=== PATIENT | female | born 1960 | race Caucasian/White ===

== ENCOUNTER 2018-10-02 10:55 | Outpatient (CLI) | payer MEDICAID, SELFPAY ==
[2018-10-02 15:18] LABS: ALT 34 U/L (12-78); AST 22 U/L (15-37); Albumin 3.6 g/dL (3.4-5.0); Alkaline Phosphatase 84 U/L (46-116); Anion Gap 8.5 mmol/L (3-11); BUN 21 mg/dL (7-18); Bilirubin, Total 0.5 mg/dL (0.2-1.0); CO2 27.5 mmol/L (21.0-32.0); CREATININE 0.75 mg/dL (0.55-1.02); Calcium 9.4 mg/dL (8.5-10.1); Chloride 104 mmol/L (98-107); Cholesterol 196 mg/dL (50-200); Glucose 104 mg/dL (70-100); HDL Cholesterol 61 mg/dL (40-60); LDL CHOLESTEROL 123 mg/dL (<100); Potassium 4.4 mmol/L (3.5-5.1); Sodium 140 mmol/L (136-145); Triglyceride 58 mg/dL (30-150)
== END 2018-10-02 11:15 ==
PROVIDERS: PCP Family Medicine; Visit Provider Family Medicine
DX: Z13.220 Encounter for screening for lipoid disorders (principal); Z13.228 Encounter for screening for other metabolic disorders; Z00.00 Encounter for general adult medical examination without abnormal findings
CPT/HCPCS: 36415; 80053; 80061; 83721

== ENCOUNTER 2019-04-02 11:37 | Outpatient (CLI) | payer MEDICAID, SELFPAY ==
--- NOTE | 2019-04-02 14:00 | DI.RAD_ITS ---
SYMPTOMS/DIAGNOSIS: LOW BACK PAIN, M25.551; LEFT HIP PAIN, M25.552 LUMBAR SPINE: AP, lateral and bilateral oblique views of the lumbar spine. Comparison is 08/22/13. There are five lumbar-type vertebral bodies. There is normal alignment. No spondylolysis or spondylolisthesis. There is minimal narrowing of the disc spaces at T12-L1 and L1-L2. Small endplate osteophytes are seen at L1-L2, L3-L4 and L4-L5. There do appear to be degenerative changes of the facets at L5-S1. No acute fractures or subluxations are seen. There are surgical clips in the right upper quadrant of the abdomen, likely reflecting prior cholecystectomy. An intrauterine device is seen in the pelvis. IMPRESSION: Mild degenerative changes of the lumbar spine. LEFT HIP AND PELVIS: Three views. The bones are intact and normally mineralized. The sacroiliac joints and symphysis pubis are intact. The hip joints are well maintained. Incidental note is made of an intrauterine device. The soft tissues are unremarkable. IMPRESSION: Negative examination.
== END 2019-04-02 11:57 ==
PROVIDERS: PCP Family Medicine; Visit Provider Family Medicine
DX: M54.5 Low back pain (principal); M25.552 Pain in left hip; M47.816 Spondylosis without myelopathy or radiculopathy, lumbar region; Z97.5 Presence of (intrauterine) contraceptive device
CPT/HCPCS: 72110; 73502

== ENCOUNTER 2019-10-03 10:46 | Outpatient (CLI) | payer MEDICAID, SELFPAY ==
[2019-10-03 12:49] LABS: Abs Immature Grans 0.02 k/cumm (0.0-0.09); Absolute Basophil Count 0.02 k/cumm (0.0-0.2); Absolute Eosinophil Count 0.09 k/cumm (0.0-0.7); Absolute Lymphocyte Count 1.63 k/cumm (1.2-3.4); Absolute Monocyte Count 0.33 k/cumm (0.11-0.7); Absolute Neutrophil Count 3.19 k/cumm (1.2-6.7); Basophils % 0.4; Eosinophils % 1.7; HCT 41.6 % (36.0-46.0); HGB 13.4 g/dL (12.0-15.5); Immature Grans % 0.4; Lymphocytes % 30.9; Mean Corp. HGB Concentration 32.2 g/dL (32.0-36.0); Mean Corpuscular Hemoglobin 29.2 pg (27.0-33.0); Mean Corpuscular Volume 90.6 fL (80-95); Mean Platelet Volume 10.4 fL (8.0-11.0); Monocytes % 6.3; Neutrophils % 60.3; Platelet Count 247 x1000/uL (130-400); RBC 4.59 m/cumm (4.00-5.20); RBC Distribution Width 14.5 % (11.7-14.6); White Blood Cell Count 5.28 k/cumm (4.4-10.8)
[2019-10-03 13:04] LABS: ALT 38 U/L (14-59); AST 21 U/L (15-37); Albumin 3.6 g/dL (3.4-5.0); Alkaline Phosphatase 84 U/L (46-116); Anion Gap 7.1 mmol/L (3-11); BUN 20 mg/dL (7-18); Bilirubin, Total 0.5 mg/dL (0.2-1.0); CO2 28.9 mmol/L (21.0-32.0); CREATININE 0.75 mg/dL (0.55-1.02); Calcium 9.4 mg/dL (8.5-10.1); Chloride 105 mmol/L (98-107); Glucose 107 mg/dL (70-100); Lipase 79 U/L (73-393); Potassium 5.1 mmol/L (3.5-5.1); Sodium 141 mmol/L (136-145); Total Protein 7.1 g/dL (6.4-8.2)
[2019-10-03 14:13] LABS: Hemoglobin A1C 6.7 % (4.5-6.2)
== END 2019-10-03 11:06 ==
PROVIDERS: PCP Family Medicine; Visit Provider Family Medicine
DX: R10.9 Unspecified abdominal pain (principal); Z00.00 Encounter for general adult medical examination without abnormal findings
CPT/HCPCS: 36415; 80053; 83690; 83036; 85025

== ENCOUNTER 2019-10-10 01:18 | Outpatient (CLI) | payer MEDICAID, SELFPAY ==
--- NOTE | 2019-10-10 07:10 | DI.RAD_ITS ---
EXAM: XR THORACIC SPINE COMPLETE INDICATION: thoracic BACK pain,M54.6. COMPARISON: No exams were available for comparison TECHNIQUE: 2D digital imaging was performed. FINDINGS: The vertebral bodies are well maintained in height. Endplate osteophytes are seen, greatest in the m id to lower thoracic region. There is no scoliosis. The visualized portions of the lungs are clear. IMPRESSION: Mild degenerative disc changes.
--- NOTE | 2019-10-10 08:15 | DI.US_ITS ---
EXAM: US ABDOMEN CLINICAL HISTORY: epigastric pain, radiating to back,R10.13 TECHNIQUE: Ultrasound performed using standard protocol. COMPARISON: No exams were available for comparison FINDINGS: The liver is normal in size and echogenicity. No focal liver lesions or biliary dilatation is seen. The patient is status post cholecystectomy. Pancreas is shadowed by bowel gas. Spleen, kidneys an d aorta are unremarkable. There is no ascites. Beneath the right costal margin, there is a smoothly marginated lesion in the subcutaneous fat measuring 5 x 2 x 7.2 cm, consistent with a lipoma. Echot exture is homogeneous and there is no blood flow. IMPRESSION: Status post cholecystectomy. 7 x 5 x 2 cm right upper quadrant lipoma.
== END 2019-10-10 01:38 ==
PROVIDERS: PCP Family Medicine; Visit Provider Family Medicine
DX: R10.13 Epigastric pain (principal); D17.5 Benign lipomatous neoplasm of intra-abdominal organs; Z90.49 Acquired absence of other specified parts of digestive tract; M54.6 Pain in thoracic spine; M51.34 Other intervertebral disc degeneration, thoracic region
CPT/HCPCS: 72072; 76700

== ENCOUNTER 2019-11-04 00:05 | Outpatient (CLI) | payer MEDICAID, SELFPAY ==
--- NOTE | 2019-11-04 13:10 | DI.MAMMO_ITS ---
EXAM: MAMMO SCREENING CLINICAL HISTORY: screening Z12.39. TECHNIQUE: Full field digital CC and MLO mammographic images were obtained with 3D tomosynthesis and utilizing computer aided detection (CAD). COMPARISON: 2008 through 2016. FINDINGS: Breast Density - Category A - Almost entirely fatty. The patient is now status post bilateral breast reduction since the previous exam. Right breast: Masses/Architectural Distortion: None seen. Microcalcifications: No suspicious pleomorphic-type are seen. Skin Thickening/Nipple Retraction: None. Left breast: There is a new area of irregular increased density seen in the medial central left breas t. It measures roughly 3.9 x 3.3 x 2.5 cm. There are scattered associated pleomorphic calcification s within the mass. There is a question of an additional area of architectural distortion measuring 1 2 x 6 millimeters seen lateral and posterior breast, seen only on the CC view. IMPRESSION: Right breast: BI-RADS category 1, negative. Yearly screening mammography is recommended. Left breast: New large mass with associated calcifications and a question of an additional smaller ma ss. Further evaluation with spot compression views and ultrasound is recommended. Category BI-RADS category 0. Breast Density - Category A - Almost entirely fatty Patient will receive a letter notifying them of these results.
== END 2019-11-04 00:25 ==
PROVIDERS: PCP Family Medicine; Visit Provider Family Medicine
DX: Z12.31 Encounter for screening mammogram for malignant neoplasm of breast (principal); R92.8 Other abnormal and inconclusive findings on diagnostic imaging of breast; Z98.890 Other specified postprocedural states
CPT/HCPCS: 77063; 77067

== ENCOUNTER 2019-11-06 01:07 | Outpatient (CLI) | payer MEDICAID, SELFPAY ==
--- NOTE | 2019-11-06 10:11 | DI.MAMMO_ITS ---
EXAM: MG MAMMO DIAGNOSTIC UNI AND LEFT BREAST ULTRASOUND CLINICAL HISTORY: MEDIAL INCREASED DENSITY POSTEROLATERAL AREA OF ARCHITECTURAL DISTORTION TECHNIQUE: Craniocaudal and mediolateral oblique Full Field Digital Mammography views with Computer Aided Diagnosis followed by Breast Tomosynthesis and bilateral breast ultrasound. COMPARISON: US BREAST LT LIMITED from 11/06/2019 FINDINGS: Additional views of the left breast: Breast Density: Breast Density - Category A - Almost entirely fatty Asymmetry: There is persistent asymmetric breast tissue in the medial central left breast. There are calcifications associated with the mass which appear pleomorphic. The 2nd smaller asymmetric densit y in the upper outer quadrant of the left breast persists. Skin Thickening/Nipple Retraction: None. Breast Ultrasound: Left breast ultrasound: Echotexture: There is a 1.2 x 1.4 x 2.8 centimeter, irregular, hypoechoic area at the 8 o'clock posit ion of the left breast 3 centimeters from the nipple. This corresponds to the mammographic abnormali ty. There is internal blood flow noted. There is posterior acoustic shadowing. The upper outer jennyfer drant of the left breast was evaluated. No cystic or solid mass is seen sonographically. IMPRESSION: 1. Mammographically and sonographically suspicious mass at the 8 o'clock position of the left breast. 2. The 2nd lesion in the upper outer quadrant of the left breast is seen only mammographically. BI-RADS Cat 4 - Suspicious Abnormality: Biopsy should be considered Breast Density - Category A - Almost entirely fatty The findings were discussed with the patient's primary care team on the date of the examination. Findings were discussed with the patient on the date of the examination. A negative radiographic report should not delay biopsy if a dominant or clinically suspicious mass is present. Up to ten percent of cancers are not identified on mammography. A negative report may reinforce clinical impression. Adenosis and dense breasts may obscure an underlying neoplasm. False positive reports average 6 to 10%. Patient will receive a letter notifying them of these results.
== END 2019-11-06 01:27 ==
PROVIDERS: PCP Family Medicine; Visit Provider Family Medicine
DX: Z12.31 Encounter for screening mammogram for malignant neoplasm of breast (principal); R92.8 Other abnormal and inconclusive findings on diagnostic imaging of breast; N63.24 Unspecified lump in the left breast, lower inner quadrant
CPT/HCPCS: 76642; 77061; 77065; G0279

== ENCOUNTER 2020-10-14 04:36 | Outpatient (CLI) | payer MEDICAID, SELFPAY ==
[2020-10-14 13:36] LABS: Hemoglobin A1C 6.4 % (<5.7)
[2020-10-14 13:53] LABS: ALT 41 U/L (14-59); AST 27 U/L (15-37); Albumin 3.7 g/dL (3.4-5.0); Alkaline Phosphatase 82 U/L (46-116); Anion Gap 12.3 mmol/L (3-11); BUN 14 mg/dL (7-18); Bilirubin, Total 0.5 mg/dL (0.2-1.0); CO2 26.7 mmol/L (21.0-32.0); COMMENT (LAB VIEW ONLY) 121.24 mg/dL; CREATININE 0.86 mg/dL (0.55-1.02); Calcium 9.1 mg/dL (8.5-10.1); Calculated LDL 103 mg/dL (<100); Chloride 104 mmol/L (98-107); Cholesterol 172 mg/dL (<200); Glucose 110 mg/dL (74-106); HDL Cholesterol 59 mg/dL (40-60); Microalb ug/mg Crea 8.2 ug/mg Cr; Sodium 143 mmol/L (136-145); Total Protein 7.2 g/dL (6.4-8.2); Triglyceride 51 mg/dL (<150)
== END 2020-10-14 04:56 ==
PROVIDERS: PCP Family Medicine; Visit Provider Family Medicine
DX: E11.9 Type 2 diabetes mellitus without complications (principal)
CPT/HCPCS: 36415; 80053; 80061; 82043; 82570; 83036

== ENCOUNTER 2020-10-20 15:44 | Outpatient (REF) | payer MEDICAID, SELFPAY ==
--- NOTE | 2020-10-20 09:00 | PAPFT_PTH ---
PATIENT: Daisy Matta LOC: [facility] U#:[id number] AGE/SX: 59/F ROOM: RE10/20/[address]: Itzel Nelson MD, DC : 1960 BED: DIS: 10/20/2020 SPEC #: [id number] RECD: 10/20/20 18:09 STATUS: ALESHIA REQ #: [id number] ABDULLAHI: 10/20/20 09:[address]: Itzel Nelson DEPT: [facility] Cytology RECD BY: Talita Garcia Tissues: 1 - CX/ENDOCX FOR PAP SMEARS Procedures: PAP THIN PREP/UVM Screening HPV DNA PROBE Comments: [id number]
== END 2020-10-20 16:04 ==
LOC: LBN 15:44
PROVIDERS: PCP Family Medicine; Visit Provider Family Medicine
DX: Z12.4 Encounter for screening for malignant neoplasm of cervix (principal); Z11.51 Encounter for screening for human papillomavirus (HPV); Z97.5 Presence of (intrauterine) contraceptive device
CPT/HCPCS: 88142; 87624

== ENCOUNTER 2020-11-24 01:06 | Outpatient (CLI) | payer MEDICAID, SELFPAY ==
--- NOTE | 2020-11-24 07:50 | DI.MAMMO_ITS ---
EXAM: MG MAMMO SCREENING CLINICAL HISTORY: breast cancer screening TECHNIQUE: Mammograms were interpreted according to the usual protocol including computer analysis w ith CAD system, tomosynthesis and C-view imaging. COMPARISON: FINDINGS: The breasts are of moderate density. There is an area of asymmetric density in the left breast proje cted in the central medial portion of the breast which has been present on multiple prior examination s. This area now contains multiple irregular microcalcifications, some linearly oriented, which were not present on prior examinations including October 2019. The findings are suspicious for malignan cy. I would note that there is also a grouping of microcalcifications projected about 2 cm superior to the main group of microcalcifications which may be intraductal. Additional evaluation with magnif ication spot compression views and breast ultrasound recommended to evaluate the possibility of malig pj. No additional suspicious mass or clumped microcalcification identified in either breast. IMPRESSION: Suspicious microcalcifications of the left breast as described above, magnification spot compression views and breast ultrasound recommended for further evaluation. BI-RADS Cat 0 - Assessment Incomplete : Need additional imaging evaluation BI-RADS Category 0 - Assessment Incomplete: Need additional imaging evaluation BI-RADS Cat 0 - Assessment Incomplete: Need additional imaging evaluation Breast Density - Category B - Scattered areas of fibroglandular density
== END 2020-11-24 01:26 ==
PROVIDERS: PCP Family Medicine; Visit Provider Family Medicine
DX: Z12.31 Encounter for screening mammogram for malignant neoplasm of breast (principal); R92.0 Mammographic microcalcification found on diagnostic imaging of breast
CPT/HCPCS: 77063; 77067

== ENCOUNTER 2020-12-03 00:51 | Outpatient (CLI) | payer MEDICAID, SELFPAY ==
--- NOTE | 2020-12-03 | DI.MAMMO_ITS ---
EXAM: MG MAMMO SCREEN CALL BACK UNI CLINICAL HISTORY: F/U MAMMO, ,LT ASYMMETRIC DENSITY WITH IRREGULAR MICROCALCIFICATIONS,?. TECHNIQUE: Additional spot compression views of the left breast were performed. COMPARISON: Prior mammograms dating back to 2011, the most recent being 11/24/2020. Prior [facility] consultation was reviewed. This patient has had prior reduction surgery. She denies feeling a lump. FINDINGS: Additional mass views reveal the microcalcifications to be most probably benign and related to fat ne crosis evolution. The additional new semi lunar microcalcifications just above and lateral have calvin gn appearance and are probably also related to fat necrosis. They correspond to findings in a benign -appearing nodule seen on today's ultrasound examination. Please see that separate report IMPRESSION: Benign-appearing left breast findings. Probably all related to fat necrosis in this patient who has had prior reduction surgery. Appropriate follow-up, as discussed by myself with the patient today, is repeat left breast imaging t o include repeat left breast mammogram with spot views as well as left breast ultrasound in 6 months. BI-RADS Category 3 - 3 month - Probably Benign Finding: Recommend follow-up mammography in 3 months Breast Density - Category B - Scattered areas of fibroglandular density Breast density Category C or D implies that the patient has dense breast tissue. Dense breast tissue can make it harder to find cancer on a mammogram. Dense breast tissue is also associated with an incr eased risk of breast cancer. This information about the result of the mammogram report was provided to the patient to raise their awareness. Use this report when you speak with the patient about their risks for breast cancer, which includes their family history. At that time, you may recommend additional screening tests (Ultrasoun d or MRI) as these tests may add significant information. A negative radiographic report should not delay biopsy if a dominant or clinically suspicious mass is present. Up to ten percent of cancers are not identified on mammography. A negative report may reinforce clinical impression. Adenosis and dense breasts may obscure an underlying neoplasm. False positive reports average 6 to 10%. Patient will receive a letter notifying them of these results.
--- NOTE | 2020-12-03 | DI.US_ITS ---
EXAM: US BREAST LT LIMITED CLINICAL HISTORY: F/U MAMMO, ASYMMETRIC DENSITY WITH IRREGULAR MICROCALCIFICATIONS. TECHNIQUE: Limited ultrasound of the left breast was performed. COMPARISON: Prior mammograms were reviewed. Prior ultrasound 11/06/2019 was also reviewed. Recent c onsultation from [facility] was reviewed FINDINGS: At the 8-830 o'clock position there is again noted the previously described shadowing mass correspond ing to the finding on the mammogram. This remains unchanged size. Appearance is most probably fat n ecrosis. In addition, there is a adjacent finding on ultrasound which corresponds to the adjacent new finding on the mammogram. This is a well-defined small wider than taller nodule with some tiny microcalcific ations in its peripheral aspect (as also seen on the mammogram) and somewhat hyperechoic. This measu res approximately 5 x 4 millimeters. Has appearance of a probable additional fat necrosis. IMPRESSION: Two findings as above which correspond to the mammographic findings. I feel that both are consistent with fat necrosis given the mammographic and ultrasound appearance is and a past history of breast r eduction surgery. Appropriate follow-up, as discussed by myself with the patient today, is repeat left breast imaging i n 6 months, this to include repeat mammography and ultrasound. BI-RADS Category 3 - 6 month - Probably Benign Finding: Recommend follow-up mammography in 6 months Breast Density - Category B - Scattered areas of fibroglandular density Breast density Category C or D implies that the patient has dense breast tissue. Dense breast tissue can make it harder to find cancer on a mammogram. Dense breast tissue is also associated with an incr eased risk of breast cancer. This information about the result of the mammogram report was provided to the patient to raise their awareness. Use this report when you speak with the patient about their risks for breast cancer, which includes their family history. At that time, you may recommend additional screening tests (Ultrasoun d or MRI) as these tests may add significant information. A negative radiographic report should not delay biopsy if a dominant or clinically suspicious mass is present. Up to ten percent of cancers are not identified on mammography. A negative report may reinforce clinical impression. Adenosis and dense breasts may obscure an underlying neoplasm. False positive reports average 6 to 10%. Patient will receive a letter notifying them of these results.
== END 2020-12-03 01:11 ==
PROVIDERS: PCP Family Medicine; Visit Provider Family Medicine
DX: R92.8 Other abnormal and inconclusive findings on diagnostic imaging of breast (principal); R92.0 Mammographic microcalcification found on diagnostic imaging of breast
CPT/HCPCS: 76642; 77063; 77067

== ENCOUNTER 2021-02-09 02:40 | Outpatient (CLI) | payer MEDICAID, SELFPAY ==
[2021-02-09 14:03] LABS: Hemoglobin A1C 6.5 % (<5.7)
== END 2021-02-09 02:41 | disposition home or self-care (01) ==
LOC: LOS 02:40
PROVIDERS: PCP Family Medicine; Visit Provider Family Medicine
DX: E11.9 Type 2 diabetes mellitus without complications (principal)
CPT/HCPCS: 36415; 83036

== ENCOUNTER 2021-05-12 02:22 | Outpatient (CLI) | payer MEDICAID, SELFPAY ==
[2021-05-12 11:59] LABS: Source Nasal/Nares
[2021-05-12 14:39] LABS: COVID-19 PCR Negative (Negative)
== END 2021-05-12 02:23 | disposition home or self-care (01) ==
PROVIDERS: PCP Family Medicine; Visit Provider Surgery
DX: Z20.822 Contact with and (suspected) exposure to COVID-19 (principal); Z01.818 Encounter for other preprocedural examination
CPT/HCPCS: 87635

== ENCOUNTER 2021-05-14 10:00 | Day surgery (SDC) | payer MEDICAID, SELFPAY ==
[2021-05-14 10:27] VITALS: BP 128/78; PULSE 67; RESP 16; TEMP 36.6; O2SAT 97
[2021-05-14] MEDS: Lactated Ringers 1,000 ML 80 ML IV (10:45)
--- NOTE | 2021-05-14 11:12 | ANES.PREOP_ITS ---
General Info Date of Service Date Performed: 05/14/21 Height: 5 ft 2 in Weight: 91 kg Body Mass Index (BMI): 36.6 Surgical Procedure: Operation Date: 05/14/21 10:20 Proposed Procedures Side Surgeon p Colonoscopy/Gastroscopy Milagro Harding, DO Meds Allergies and Home Medications Allergies Allergy/AdvReac Type Severity Reaction Status Date / Time shellfish derived Allergy Unknown Unverified 05/14/21 10:25 Home Medication Medication Instructions Recorded acetaminophen [Tylenol Extra 1,000 mg PO PRN tab-cap 10/17/17 Strength] ibuprofen 200 mg PO PRN tab-cap 02/20/18 triamcinolone acetonide 0.5 % 1 applic TP BID #454 gm 01/22/19 topical cream furosemide 20 mg tablet 20 mg PO DAILY PRN #60 tab 04/02/19 losartan 25 mg tablet 25 mg PO DAILY #90 tab 07/23/20 meclizine 12.5 mg tablet 12.5 mg PO DAILY PRN #30 tab 10/20/20 omeprazole 20 mg capsule,delayed 20 mg PO DAILY #90 tab-cap 01/07/21 release bisacodyl 5 mg tablet,delayed 5 mg PO ONCE #4 tab 04/29/21 release polyethylene glycol 3350 17 238 g PO ONCE #238 g 04/29/21 gram/dose oral powder Current Visit Medications: Current Medications Generic Name Dose Route Start Last Admin Trade Name Freq PRN Reason Stop Dose Admin Hyoscyamine Sulfate 0.125 mg 05/14/21 09:04 Hyoscyamine 0.125 Mg Sl/Oral/Chew SL DIRECTED PRN Ringer's Solution 1,000 mls @ 80 mls/hr 05/14/21 06:00 05/14/21 10:45 IV 06/12/21 23:59 80 mls/hr INFUSION EDWIN Administration IV Miscellaneous Supplies 1 each 05/14/21 06:00 Iv Access IV 06/12/21 23:59 DIRECTED EDWIN Sodium Chloride 0 ml 05/14/21 06:00 Normal Saline Flush 10 Ml Syr IV 06/12/21 23:59 PRN PRN Sodium Chloride 0 ml 05/14/21 06:00 Normal Saline 10 Ml Vial IJ 06/12/21 23:59 DIRECTED PRN Sterile Water 0 ml 05/14/21 06:00 Water,Injection,Sterile 10 Ml Vial IJ 06/12/21 23:59 DIRECTED PRN PFSH Active Problems Active Problems: Problem Status Onset Code Encounter for screening colonoscopy Z12.11 Diabetes mellitus E11.9 Change in bowel function Hand pain M79.643 IUD (intrauterine device) in place Z97.5 Eczema L30.9 Anal pruritus L29.0 Right hip pain M25.551 Encounter for annual health examination Z00.00 Uterine leiomyoma D25.9 Polyp of colon K63.5 Osteoporosis M81.0 Onychomycosis 10/20/14 B35.1 Language barrier Z78.9 Gastroesophageal reflux disease without esophagitis K21.9 Anxiety F41.9 Medical History Medical History Anxiety Gastroesophageal reflux disease without esophagitis 1999 UGI: POS REFLUX/DUODENAL CAP; 05/29 08/30: POS H.PYLORI; 03/31 EGD: GASTRITIS, NEG H. PYLORI REFLUX Language barrier speaks Prydeinig/Chinese combination Onychomycosis (10/20/14) Osteoporosis Polyp of colon 03/31 COLONOSCOPY: TUBULAR ADENOMA; DR. PEREZ HX of heme positive stools Uterine leiomyoma POSTERIOR FIBROID/ INCREASED ENDOMETRIAL STRIP Surgical History Surgical History Cholecystectomy (~03/2001) Colonoscopy - MAC H/O reduction mammoplasty Tonsillectomy (~09/2006) Tobacco Smoking/Tobacco Use Status: Never Passive smoking exposure: No Second hand exposure: No Alcohol Alcohol Intake: never Substance Use Substance use: Never Substance use type: does not use Prental History History 4 Para Hx # Term Pregnancies 3 Multiple births Hx # Pregnancies Ectopic pregnancies AB induced Hx Number of Living Children AB spontaneous Vital Signs and Lab Results Vital Signs Most Recent Vital Signs in EMR: Most Recent Vital Signs Temp Pulse Resp BP Pulse Ox 36.6 C 67 16 128/78 97 05/14/21 10:27 05/14/21 10:27 05/14/21 10:27 05/14/21 10:27 05/14/21 10:27 Point of Care Results Point of Care Results: Finger Stick Blood Glucose 99 05/14/21 10:55 Lab Results Blood Type / Crossmatch: No Data to Display Complete Blood Count: No Data to Display Complete Metabolic Panel: No Data to Display Liver Function Panel: No Data to Display Coagulation Panel: No Data to Display Cardiac Panel: No Data to Display Arterial Blood Gas: No Data to Display Venous Blood Gas: No Data to Display Pancreas Panel: No Data to Display Thyroid Panel: No Data to Display Infectious Disease: Coronavirus (COVID-19)(PCR) Negative (Negative) 05/12/21 09:16 05/12/21 Coronavirus 2019 Source Nasal/nares 05/12/21 09:16 05/12/21 Blood Cultures: No Data to Display Toxicology Panel: No Data to Display Anesthesia Assessment and Plan Anesthesia History Personal History: No History of Anesthesia Complications Family History: No Family History of Anesthesia Complications Exercise Tolerance Exercise Tolerance: Metabolic Equivalents>4 Pertinent Negatives Pertinent Negatives: No Symptoms of GERD, No Major Cardiovascular Symptoms or Complaints, No Major Pulmonary Symptoms or Complaints and No History of CVA/TIA Cardiac & Pulmonary Exam Cardiac Exam: Normal S1/S2 Heart Sounds Pulmonary Exam: Clear Bilateral Breath Sounds Airway Exam Known Difficult Airway: No Mallampati Class: 1 Mouth Opening: Normal (> 3cm) Thyromental Distance: Greater than 3 cm Neck Range of Motion: Full ROM Neck Circumference: Normal Teeth Condition: Normal Dentition ASA Classification ASA Score: ASA 1 Emergency Case?: No NPO Status NPO Status: NPO Clears >2 hours, Solids >8 hours Anesthesia Plan Resuscitation Status: Full Code Anesthesia Technique: General Anesthesia Airway Planned: Natural Airway Monitors Used: Standard Monitors
[2021-05-14 11:24] VITALS: BMI 36.6
--- NOTE | 2021-05-14 12:50 | STOM_PTH ---
PATIENT: Daisy Matat LOC: [facility] U#:[id number] AGE/SX: 60/F ROOM: RE05/14/[address]: Milagro Harding : 1960 BED: DIS: 05/14/2021 SPEC #: [id number] RECD: 05/14/21 17:30 STATUS: ALESHIA REWeston #: [id number] ABDULLAHI: 05/14/21 12:[address]: Milagro Harding DEPT: Surgical Specimen RECD BY: Talita Garcia ENTERED: 05/14/21 17:30 SP TYPE: STOMACH OTHR DR: Itzel Nelson MD, DC Tissues: 1 - BIOPSY BOWEL 2 - STOMACH BIOPSY 3 - STOMACH BIOPSY 4 - ESOPHAGUS BIOPSY 5 - ESOPHAGUS BIOPSY Procedures: GROSS AND MICRO LEVEL 4 Comments: [id number]
[2021-05-14 13:24] VITALS: BP 119/70; PULSE 74; RESP 18; TEMP 36.2; O2SAT 96
--- NOTE | 2021-05-14 13:26 | W.ANESPOSTOP ---
Postoperative Evaluation Date, Time and Location Date Performed: 05/14/21 Time Performed: 13:27 Patient Location: Day Surgery Unit Vital Signs Most Recent Imported Vital Signs: Most Recent Vital Signs Temp Pulse Resp BP Pulse Ox 36.6 C 67 16 128/78 97 05/14/21 10:27 05/14/21 10:05/14/21 10:05/14/21 10:05/14/21 10:27 Most Recent Manually Entered Vital Signs: Adult Blood Pressure: 119/70 Heart Rate: 74 Respirations: 18 Oxygen Saturation (%): 96 Temperature (C): 36.5 C Pain Score (0-10 Scale): 0 Pain Score Most Recent Pain Score: Most Recent Pain Score Pain Level 0 05/14/21 10:27 Assessment Mental Status: Awake (Alert & Oriented to Patient Baseline) Airway and Respiratory Function: Patent airway with normal (patient baseline) respiratory exam Cardiovascular Function: Hemodynamically Stable Hydration Status: Adequately Hydrated Nausea & Vomiting: No Nausea or Vomiting Pain: Pt. Denies Any Pain Peripheral Nerve Block: Patient did not receive a nerve block
[2021-05-14 13:28] VITALS: BP 119/70; PULSE 74; RESP 18; TEMPC 36.5; O2SAT 96
--- NOTE | 2021-05-14 13:32 | W.COLOREPORT ---
Date of service: 05/14/21 Time of Service: 13:32 Colonoscopy Report Date of procedure: 05/14/21 Pre-op diagnosis general: screen Post-op diagnosis procedure note: other (Moderate sigmoid diverticula confined to the left colon. No signs of bleeding or infection.) Prep: Miralax/Dulcolax Retraction Time: 9 mins Procedure Description: After informed consent was obtained the patient was taken to the procedure room and placed in a left decubitous position. Monitors were applied and a time out was done. The patients name, date of , procedure, allergies to medications and metal in their body was reviewed. The patient was then sedated. Once sedated and comfortable a rectal exam was done. External exam shows mild ext hemorrhoids. Internal exam revealed a normal sphincter tone and no palpable masses. The scope was then introduced and retrofelexed. internal hemorrhoids were identified. The scope was then advanced to the cecum w/out difficulty. The TI and appendiceal orifice were identified. The prep was adequate. The scope was then slowly retracted over 9 minutes back into the rectum. There are no polyps or AVMs. Today. She has moderate sigmoidal diverticula confined to the left colon with no signs of active bleeding or infection. The scope was removed and the patient was woken up and taken back to Same day surgery in stable condition. The patient tolerated the procedure well and there were no immediate complications. Follow up: The patient should follow up in 10 years unless they develop changes in bowel habits or other new gastrointestinal complaints.
--- NOTE | 2021-05-14 13:34 | W.PM.ENDDOP ---
Date of service: 05/14/21 Time of Service: 13:34 Endoscopy Report DATE OF PROCEDURE: 05/14/21 PRE-OP DIAGNOSIS: epigastric pain POST-OP DIAGNOSIS: other (Bile reflux gastritis) ANESTHESIA TYPE: General:No Airway ESTIMATED BLOOD LOSS: 1 PATHOLOGY: other COMPLICATIONS: None DISPOSITION: same day PROCEDURE DESCRIPTION: After informed consent was obtained the patient was take to the procedure room and placed in a supine position. Monitors were applied and a time out was done. The patients name, date of , procedure type, allergies to medications and metal in their body was reviewed. A bite block was placed and the patient was sedated. Once sedated and comfortable the gastroscope was advanced through the oropharynx which was grossly normal into the esophagus. The proximal and mid-esophagus were nl. In the distal esophagus there was no esophageal erosions, varices, diverticula, or stricture apparent. The scope was advanced into the stomach and through the pylorus into the 3rd portion of the duodenum. The duodenum was noted to be nl. Biopsy's were done; all specimens are retrieved and no bleeding is noted. There is bile refluxing back into the stomach. The scope was retracted back into the stomach and biopsies were done to rule out H. pylori. There was no ulcers. She has bile noted within the stomach. There is some mild erythema/gastritis in the antral region- it radiates out in a striped fashion. The scope was retroflexed. The cardia and fundus were noted to be normal. There is no hiatal hernia noted. The scope was retracted back into the esophagus and biopsies were done of the GE junction to rule out Perez's. The Z line was regular. The scope was removed and the patient was woken up and taken back to [facility] in stable condition. Follow up: will a letter w/ Bx results
--- NOTE | 2021-05-14 13:36 | PDOC.DSDIS_ITS ---
Discharge Plan Disposition Patient Disposition: HOME Condition: Good Discharge Details Reason For Visit: stomach & colon scope Attending Provider: Milagro Harding Primary Care Provider: Itzel Nelson Home Meds and New Rx's Prescriptions: New pantoprazole [Protonix] 40 mg tablet,delayed release (DR/EC) 40 mg PO DAILY Qty: 30 RF: 12 sucralfate [Carafate] 1 gram tablet 1 g PO BID Qty: 60 RF: 12 Continued furosemide 20 mg tablet 20 mg PO DAILY PRN (Reason: edema) Qty: 60 RF: 3 triamcinolone acetonide 0.5 % cream 1 applic TP BID Qty: 454 RF: 0 meclizine 12.5 mg tablet 12.5 mg PO DAILY PRN (Reason: dizziness) Qty: 30 RF: 0 losartan 25 mg tablet 25 mg PO DAILY Qty: 90 RF: 4 acetaminophen [Tylenol Extra Strength] 500 MG tablet 1,000 mg PO PRN RF: 0 ibuprofen 200 MG capsule 200 mg PO PRN RF: 0 Discontinued bisacodyl [Dulcolax (bisacodyl)] 5 mg tablet,delayed release (DR/EC) 5 mg PO ONCE Qty: 4 RF: 0 polyethylene glycol 3350 17 gram/dose powder 238 g PO ONCE Qty: 238 RF: 0 omeprazole 20 mg capsule,delayed release(DR/EC) 20 mg PO DAILY Qty: 90 RF: 3 Discharge Instructions Additional Instructions: DSU Colonoscopy Post- Op Instructions Instructions for Everyone who is given Anesthesia: For your safety, please do the following for the next twenty-four (24) hours: *Do Not operate a motor vehicle (car, truck, motorcycle, etc.) *Do Not drink alcoholic beverages or use any recreational drugs for the first 24 hours or while taking pain medications. The medications in your body may have a reaction that can be dangerous. *Do Not make any important decisions or sign any important papers. Findings:gastritis diverticula Follow up: F/u PCP in 3-4 wks 1. No lifting over 20 pounds or strenuous activity for the first 24 hours after your procedure. After 24 hours there are no restrictions on your activity but you may feel fatigued for a few days. 2. After you arrive home you may have a light meal and return to your normal diet as you can tolerate it without feeling sick to your stomach. 3. You may have a bloated, gaseous feeling in your belly (abdomen) after a colonoscopy. Passing gas and belching will help. Walking or lying down on your left side with your knees flexed may relieve the discomfort. Call the office at [phone] (Office) or [phone] (Hospital) right away if you notice any of the following: a.Vomiting of blood or ?coffee ground stools?. b.Rectal bleeding 1Tbsp, blood clots or continuous bleeding. c.Severe belly (abdominal) pain. d.A hard distended belly (abdomen) and an inability to pass gas. 4. Please don?t expect to have a normal BM (bowel movement) for 2-3 days after your procedure. 5. If there are questions regarding the findings of your procedure, please contact your doctor 6. If you are unable to contact your doctor with a problem, contact the hospital at [phone]. 7. Continue all your regular medications unless directed otherwise. I understand the above instructions and have no questions. Signature of Patient or Adult Escort Name of Responsible Adult Escort Signature of Nurse Date/Time Activity:: see above Diet:: see above Discharge Orders Discharge Orders: Discharge Order (Routine); Ordered 05/14/21 Ordered By: Milagro Harding DS: Diagnosis Discharge Diagnosis (1) Bile reflux gastritis: Status: Acute (2) Diverticula of colon: Status: Acute
--- NOTE | 2021-05-14 13:41 | ANES.PREOP_ITS ---
General Info Date of Service Date Performed: 05/14/21 Height: 5 ft 2 in Weight: 91 kg Body Mass Index (BMI): 36.6 Surgical Procedure: Operation Date: 05/14/21 10:20 Proposed Procedures Side Surgeon p Colonoscopy/Gastroscopy Milagro Harding, Actual Procedures Side Surgeon p Colonoscopy/Gastroscopy w/bx's Not Applicable Milagro Harding, Pre-Op Diagnosis Post-Op Diagnosis GERD, screening colonoscopy mild reflux, external hemorrhoids, diverticulosis Meds Allergies and Home Medications Allergies Allergy/AdvReac Type Severity Reaction Status Date / Time shellfish derived Allergy Unknown Unverified 05/14/21 10:25 Home Medication Medication Instructions Recorded acetaminophen [Tylenol Extra 1,000 mg PO PRN tab-cap 10/17/17 Strength] ibuprofen 200 mg PO PRN tab-cap 02/20/18 triamcinolone acetonide 0.5 % 1 applic TP BID #454 gm 01/22/19 topical cream furosemide 20 mg tablet 20 mg PO DAILY PRN #60 tab 04/02/19 losartan 25 mg tablet 25 mg PO DAILY #90 tab 07/23/20 meclizine 12.5 mg tablet 12.5 mg PO DAILY PRN #30 tab 10/20/20 pantoprazole [Protonix] 40 mg PO DAILY #30 tab 05/14/21 sucralfate [Carafate] 1 g PO BID #60 tab 05/14/21 Current Visit Medications: Current Medications Generic Name Dose Route Start Last Admin Trade Name Freq PRN Reason Stop Dose Admin Hyoscyamine Sulfate 0.125 mg 05/14/21 09:04 Hyoscyamine 0.125 Mg Sl/Oral/Chew SL DIRECTED PRN Ringer's Solution 1,000 mls @ 80 mls/hr 05/14/21 06:00 05/14/21 13:18 IV 06/12/21 23:59 80 mls/hr INFUSION EDWIN Infusion IV Miscellaneous Supplies 1 each 05/14/21 06:00 Iv Access IV 06/12/21 23:59 DIRECTED EDWIN Sodium Chloride 0 ml 05/14/21 06:00 Normal Saline Flush 10 Ml Syr IV 06/12/21 23:59 PRN PRN Sodium Chloride 0 ml 05/14/21 06:00 Normal Saline 10 Ml Vial IJ 06/12/21 23:59 DIRECTED PRN Sterile Water 0 ml 05/14/21 06:00 Water,Injection,Sterile 10 Ml Vial IJ 06/12/21 23:59 DIRECTED PRN PFSH Active Problems Active Problems: Problem Status Onset Code Diverticula of colon K57.30 Bile reflux gastritis K29.60 Encounter for screening colonoscopy Z12.11 Diabetes mellitus E11.9 Change in bowel function Hand pain M79.643 IUD (intrauterine device) in place Z97.5 Eczema L30.9 Anal pruritus L29.0 Right hip pain M25.551 Encounter for annual health examination Z00.00 Uterine leiomyoma D25.9 Polyp of colon K63.5 Osteoporosis M81.0 Onychomycosis 10/20/14 B35.1 Language barrier Z78.9 Gastroesophageal reflux disease without esophagitis K21.9 Anxiety F41.9 Medical History Medical History (Updated 05/14/21 @ 13:37 by Milagro Harding, DO) Anxiety Gastroesophageal reflux disease without esophagitis 1999 UGI: POS REFLUX/DUODENAL CAP; 05/29 08/30: POS H.PYLORI; 03/31 EGD: GASTRITIS, NEG H. PYLORI REFLUX Language barrier speaks Ecuadorean/Wolof combination Onychomycosis (10/20/14) Osteoporosis Polyp of colon 03/31 COLONOSCOPY: TUBULAR ADENOMA; DR. PEREZ HX of heme positive stools Uterine leiomyoma POSTERIOR FIBROID/ INCREASED ENDOMETRIAL STRIP Surgical History Surgical History Cholecystectomy (~03/2001) Colonoscopy - MAC H/O reduction mammoplasty Tonsillectomy (~09/2006) Tobacco Smoking/Tobacco Use Status: Never Passive smoking exposure: No Second hand exposure: No Alcohol Alcohol Intake: never Substance Use Substance use: Never Substance use type: does not use Prental History History 4 Para Hx # Term Pregnancies 3 Multiple births Hx # Pregnancies Ectopic pregnancies AB induced Hx Number of Living Children AB spontaneous Vital Signs and Lab Results Vital Signs Most Recent Vital Signs in EMR: Most Recent Vital Signs Temp Pulse Resp BP Pulse Ox 36.2 C L 74 18 119/70 96 05/14/21 13:24 05/14/21 13:24 05/14/21 13:24 05/14/21 13:24 05/14/21 13:24 Point of Care Results Point of Care Results: Finger Stick Blood Glucose 99 05/14/21 10:55 Lab Results Blood Type / Crossmatch: No Data to Display Complete Blood Count: No Data to Display Complete Metabolic Panel: No Data to Display Liver Function Panel: No Data to Display Coagulation Panel: No Data to Display Cardiac Panel: No Data to Display Arterial Blood Gas: No Data to Display Venous Blood Gas: No Data to Display Pancreas Panel: No Data to Display Thyroid Panel: No Data to Display Infectious Disease: Coronavirus (COVID-19)(PCR) Negative (Negative) 05/12/21 09:16 05/12/21 Coronavirus 2019 Source Nasal/nares 05/12/21 09:16 05/12/21 Blood Cultures: No Data to Display Toxicology Panel: No Data to Display Anesthesia Assessment and Plan Anesthesia History Personal History: No History of Anesthesia Complications Family History: No Family History of Anesthesia Complications Airway Exam Known Difficult Airway: No Mallampati Class: 1 Mouth Opening: Normal (> 3cm) Thyromental Distance: Greater than 3 cm Neck Range of Motion: Full ROM Neck Circumference: Normal Teeth Condition: Normal Dentition
[2021-05-14 14:04] VITALS: BP 145/81; PULSE 54; RESP 18; TEMP 36.3; O2SAT 98
== END 2021-05-14 14:35 | disposition home or self-care (01) ==
PROVIDERS: PCP Family Medicine; Visit Provider Surgery
PROC: (CPT 43239; principal; 2021-05-14 10:15)
DX: Z12.11 Encounter for screening for malignant neoplasm of colon (principal); Z86.010 Personal history of colon polyps; K21.00 Gastro-esophageal reflux disease with esophagitis, without bleeding; K29.70 Gastritis, unspecified, without bleeding; K57.30 Diverticulosis of large intestine without perforation or abscess without bleeding; K64.8 Other hemorrhoids
CPT/HCPCS: 43239; 45378; 88305; J2001

== ENCOUNTER 2021-06-08 02:04 | Outpatient (CLI) | payer MEDICAID, SELFPAY ==
--- NOTE | 2021-06-08 07:30 | DI.MAMMO_ITS ---
Exam(s) MG MAMMO DIAGNOSTIC UNI EXAM: MG MAMMO DIAGNOSTIC UNI CLINICAL HISTORY: 3-6 MOS F/U,F/U ABNL MAMMO,R92.8,Z09. TECHNIQUE: Craniocaudal and mediolateral oblique Full Field Digital Mammography views of the breast with Computer Aided Diagnosis followed by Tomosynthesis. COMPARISON: MG Screening Bilat Mammo from 03/15/2017 MG Standard Screening - Combo from 07/25/2018 MG Standard Screening - Combo from 07/25/2018 MG MG MAMMO SCREENING from 11/04/2019 MG MG MAMMO SCREENING from 11/04/2019 MG MG MAMMO DIAGNOSTIC UNI from 11/06/2019 MG MG MAMMO DIAGNOSTIC UNI from 11/06/2019 MG Unilateral Mammography, Left from 05/27/2020 MG MG MAMMO SCREENING from 11/24/2020 MG MG MAMMO SCREEN CALL BACK UNI from 12/03/2020 MG MG MAMMO SCREEN CALL BACK UNI from 12/03/2020 FINDINGS: Mammography/Tomosynthesis: Masses/Architectural Distortion: Status post bilateral breast reduction. Stable area of increased de nsity and serpiginous calcifications consistent with fat necrosis. No new findings. Microcalcifictions: No suspicious pleomorphic-type are seen. Skin Thickening/Nipple Retraction: None. IMPRESSION: 1. No evidence of malignancy is noted. Stable changes of fat necrosis. 2. Unless there is more urgent need, follow-up screening mammography is recommended, as per [place] [employer] guidelines. 3. BI-RADS Category 2 - Benign Findings Breast Density - Category A - Almost entirely fatty Breast density category C or D implies that the patient has dense breast tissue. Dense breast tissue is very common and is not abnormal but dense breast tissue can make it harder to find cancer on a ma mmogram. Also, dense breast tissue may increase their breast cancer risk. This information about the result of the mammogram report was provided to the patient to raise their awareness. Use this report when you speak with the patient about their risks for breast cancer, which includes their family hist ory. At that time, you may recommend for more screening tests (Ultrasound or MRI) as they might be us eful based on their risk. A negative radiographic report should not delay biopsy if a dominant or clinically suspicious mass is present. Up to ten percent of cancers are not identified on mammography. A negative report may reinforce clinical impression. Adenosis and dense breasts may obscure an underlying neoplasm. False positive reports average 6 to 10%. Patient will receive a letter notifying them of these results.
== END 2021-06-08 02:24 ==
PROVIDERS: PCP Family Medicine; Visit Provider Family Medicine
DX: Z09 Encounter for follow-up examination after completed treatment for conditions other than malignant neoplasm; R92.8 Other abnormal and inconclusive findings on diagnostic imaging of breast; N64.1 Fat necrosis of breast
CPT/HCPCS: 77061; 77065; G0279

== ENCOUNTER 2021-06-15 09:34 | Outpatient (CLI) | payer MEDICAID, SELFPAY ==
[2021-06-15 13:04] LABS: Hemoglobin A1C 6.5 % (<5.7)
== END 2021-06-15 09:35 | disposition home or self-care (01) ==
LOC: LOS 09:36
PROVIDERS: PCP Family Medicine; Visit Provider Family Medicine
DX: E11.9 Type 2 diabetes mellitus without complications (principal)
CPT/HCPCS: 36415; 83036

== ENCOUNTER 2022-03-29 01:46 | Outpatient (CLI) | payer MEDICAID, SELFPAY ==
[2022-03-29 12:18] LABS: HCT 40.3 % (36.0-46.0); MCH 29.2 pg (27.0-33.0); MCHC 32.3 % (32.0-36.0); MCV 91 fL (80-95); MPV 10.8 fL (8.0-11.0); Platelet Count 241 10^3/uL (130-400); RBC 4.45 10^6/uL (3.93-5.22); WBC 5.86 10^3/uL (4.4-10.8)
[2022-03-29 12:33] LABS: ALT 35 U/L (14-59); AST 18 U/L (15-37); Albumin 3.7 g/dL (3.4-5.0); Alkaline Phosphatase 85 U/L (46-116); Anion Gap 6.5 mmol/L (3-11); BUN 19 mg/dL (7-18); Bilirubin, Total 0.6 mg/dL (0.2-1.0); CO2 28.5 mmol/L (21.0-32.0); CREATININE 0.8 mg/dL (0.55-1.02); Calcium 9.1 mg/dL (8.5-10.1); Chloride 104 mmol/L (98-107); Glucose 122 mg/dL (74-106); Potassium 4.1 mmol/L (3.5-5.1); Sodium 139 mmol/L (136-145); Total Protein 7.1 g/dL (6.4-8.2)
[2022-03-29 15:31] LABS: Hemoglobin A1C 6.7 % (<5.7)
== END 2022-03-29 01:47 | disposition home or self-care (01) ==
LOC: LOS 01:47
PROVIDERS: PCP Family Medicine; Visit Provider Family Medicine
DX: E11.9 Type 2 diabetes mellitus without complications (principal); K29.70 Gastritis, unspecified, without bleeding
CPT/HCPCS: 36415; 80053; 85027; 83036

== ENCOUNTER 2022-03-29 16:43 | Outpatient (REF) | payer MEDICAID, SELFPAY | END 2022-03-29 16:44 | disposition home or self-care (01) | LOC: LBN 16:43 | PROVIDERS: PCP Family Medicine; Visit Provider Family Medicine ==

== ENCOUNTER 2022-04-05 12:21 | Outpatient (CLI) | payer MEDICAID, SELFPAY ==
--- NOTE | 2022-04-05 14:13 | DI.RAD_ITS ---
Exam(s) XR THORACIC SPINE COMPLETE EXAM: XR THORACIC SPINE COMPLETE CLINICAL HISTORY: Pain in thoracic spine - M54.6. TECHNIQUE: 2D digital imaging was performed. COMPARISON: CR XR THORACIC SPINE COMPLETE from 10/10/2019 FINDINGS: 3 views No evidence of compression fracture or listhesis. Some degenerative disc disease is noted. No signi ficant scoliosis and no abnormal widening of the paraspinal lines. No osseous lesions seen in thorac ic vertebral bodies. IMPRESSION: DATA REPOSITORY: RADIATION DOSE DELIVERED:
== END 2022-04-05 12:41 ==
PROVIDERS: PCP Family Medicine; Visit Provider Family Medicine
DX: M54.6 Pain in thoracic spine (principal); M51.34 Other intervertebral disc degeneration, thoracic region
CPT/HCPCS: 72072

== ENCOUNTER → 2022-08-10 00:48 | Outpatient (CLI) | payer MEDICAID, SELFPAY ==
--- NOTE | 2022-08-10 11:45 | DI.MAMMO_ITS ---
Exam(s) MAMMO SCREENING EXAM: MAMMO SCREENING CLINICAL HISTORY: screening. TECHNIQUE: Bilateral full field digital CC and MLO mammographic images were obtained with 3D tomosyn thesis and utilizing computer aided detection (CAD). COMPARISON: Prior mammograms were reviewed, the most recent being October 2020 and May 2021. Prio r breast ultrasound November 2020 was also reviewed. History of prior reduction surgery bilaterally FINDINGS: There are no new right breast findings. In the left breast the previously described area of asymmetric density and calcifications having the appearance of fat necrosis is unchanged from May 2020. this has the appearance of benign fat necro sis. There are no new spiculated masses nor malignant appearing microcalcification groups. There is no new significant architectural distortion nor skin thickening-retraction. IMPRESSION: Stable benign findings-no radiographic evidence of malignancy. BI-RADS Category 2 - Benign Findings Breast Density - Category A - Almost entirely fatty Breast density Category C or D implies that the patient has dense breast tissue. Dense breast tissue can make it harder to find cancer on a mammogram. Dense breast tissue is also associated with an incr eased risk of breast cancer. This information about the result of the mammogram report was provided to the patient to raise their awareness. Use this report when you speak with the patient about their risks for breast cancer, which includes their family history. At that time, you may recommend additional screening tests (Ultrasoun d or MRI) as these tests may add significant information. A negative radiographic report should not delay biopsy if a dominant or clinically suspicious mass is present. Up to ten percent of cancers are not identified on mammography. A negative report may reinforce clinical impression. Adenosis and dense breasts may obscure an underlying neoplasm. False positive reports average 6 to 10%. Patient will receive a letter notifying them of these results.
== END ==
PROVIDERS: PCP Family Medicine; Visit Provider Obstetrics & Gynecology Gynecology
DX: Z12.31 Encounter for screening mammogram for malignant neoplasm of breast (principal); N64.1 Fat necrosis of breast; Z98.890 Other specified postprocedural states
CPT/HCPCS: 77063; 77067

== ENCOUNTER 2022-08-16 10:22 | Outpatient (CLI) | payer MEDICAID, SELFPAY ==
[2022-08-16 13:00] LABS: ALT 30 U/L (14-59); AST 20 U/L (15-37); Albumin 3.5 g/dL (3.4-5.0); Alkaline Phosphatase 76 U/L (46-116); Anion Gap 8.9 mmol/L (3-11); BUN 20 mg/dL (7-18); Bilirubin, Total 0.5 mg/dL (0.2-1.0); CO2 26.1 mmol/L (21.0-32.0); CREATININE 0.9 mg/dL (0.55-1.02); Calcium 9.4 mg/dL (8.5-10.1); Calculated LDL 116 mg/dL (<100); Chloride 104 mmol/L (98-107); Cholesterol 192 mg/dL (<200); Estimated GFR 72.73 (mL/min/1.73m2); Glucose 113 mg/dL (74-106); HDL Cholesterol 63 mg/dL (40-60); Potassium 4.1 mmol/L (3.5-5.1); Sodium 139 mmol/L (136-145); Total Protein 7.7 g/dL (6.4-8.2); Triglyceride 69 mg/dL (<150)
[2022-08-16 13:09] LABS: Hemoglobin A1C 6.7 % (<5.7)
[2022-08-16 22:06] LABS: Albumin ug/mg Crea 8 (<30); Albumin, Ur 1.9 mg/dL (See Note); Creatinine, Ur 231.9 mg/dL (See Note)
== END 2022-08-16 10:23 | disposition home or self-care (01) ==
LOC: LOS 10:23
PROVIDERS: PCP Family Medicine; Referring Provider Family Medicine; Visit Provider Family Medicine
DX: E11.9 Type 2 diabetes mellitus without complications (principal); K21.9 Gastro-esophageal reflux disease without esophagitis
CPT/HCPCS: 80053; 80061; 82043; 82570; 83036

== ENCOUNTER 2023-09-01 12:19 | Outpatient (REF) | payer MEDICAID, SELFPAY ==
--- NOTE | 2023-08-31 14:00 | PAPFT_PTH ---
PATIENT: Daisy Matta LOC: [facility]#:[id number] AGE/SX: 62/F ROOM: RE09/01/[address]: Itzel Nelson MD, DC : 1960 BED: DIS: 09/01/2023 SPEC #: [id number] RECD: 09/01/23 12:37 STATUS: ALESHIA REQ #: [id number] ABDULLAHI: 08/31/23 14:[address]: Itzel Nelson DEPT: [facility] Cytology RECD BY: Talita Garcia Tissues: 1 - CX/ENDOCX FOR PAP SMEARS Procedures: PAP THIN PREP/UVM Screening HPV DNA PROBE Comments: [id number]
== END 2023-09-01 12:20 | disposition home or self-care (01) ==
LOC: LBN 12:19
PROVIDERS: PCP Family Medicine; Visit Provider Family Medicine
DX: Z12.4 Encounter for screening for malignant neoplasm of cervix (principal); Z11.51 Encounter for screening for human papillomavirus (HPV)
CPT/HCPCS: 88142; 87624

== ENCOUNTER 2023-09-06 01:56 | Outpatient (CLI) | payer MEDICAID, SELFPAY ==
[2023-09-06 12:36] LABS: COMMENT (LAB VIEW ONLY) 83.39 mg/dL; Microalb ug/mg Crea 5.5 ug/mg Cr
[2023-09-06 13:04] LABS: ALT 32 U/L (14-59); AST 20 U/L (15-37); Albumin 3.4 g/dL (3.4-5.0); Alkaline Phosphatase 81 U/L (46-116); Anion Gap 6.9 mmol/L (3-11); BUN 20 mg/dL (7-18); Bilirubin, Total 0.4 mg/dL (0.2-1.0); CO2 27.1 mmol/L (21.0-32.0); CREATININE 0.8 mg/dL (0.55-1.02); Calcium 9.4 mg/dL (8.5-10.1); Calculated LDL 111 mg/dL (<100); Chloride 104 mmol/L (98-107); Cholesterol 180 mg/dL (<200); Estimated GFR 83.26 (mL/min/1.73m2); Glucose 126 mg/dL (74-106); HDL Cholesterol 60 mg/dL (40-60); Potassium 3.8 mmol/L (3.5-5.1); Sodium 138 mmol/L (136-145); Total Protein 7.4 g/dL (6.4-8.2); Triglyceride 45 mg/dL (<150); Vitamin B12 405 pg/mL (193-986)
== END 2023-09-06 01:57 | disposition home or self-care (01) ==
LOC: LOS 01:56
PROVIDERS: PCP Family Medicine; Visit Provider Family Medicine
DX: E11.9 Type 2 diabetes mellitus without complications (principal); I10 Essential (primary) hypertension; K21.9 Gastro-esophageal reflux disease without esophagitis; K29.70 Gastritis, unspecified, without bleeding
CPT/HCPCS: 36415; 80053; 80061; 82043; 82570; 82607

== ENCOUNTER → 2023-09-07 00:47 | Outpatient (CLI) | payer MEDICAID, SELFPAY ==
--- NOTE | 2023-09-07 06:00 | DI.DEXA_ITS ---
Exam(s) XR DEXA BONE DENSITY W/WO CRYSTAL EXAM: XR DEXA BONE DENSITY W/WO CRYSTAL CLINICAL HISTORY: screening for osteoporosis in postmenopausal woman,z78.0 TECHNIQUE: COMPARISON: Comparison examination is 05/08/2007. FINDINGS: Lateral Spine Image: Unremarkable. No compression deformities identified. Left hip: Total T-Score: 1.0. This compares to 1.5 on the prior examination. Total Z-Score: 2.1 T- and Z-scores: Within normal limits. Lumbar Spine: Total T-Score: -1.0. Comparison is made with -0.1 on the prior examination. Total Z-Score: 0.6 T- and Z-scores: Within normal limits. IMPRESSION: No evidence of osteoporosis.
--- NOTE | 2023-09-07 10:06 | DI.MAMMO_ITS ---
Exam(s) MAMMO SCREENING EXAM: MAMMO SCREENING CLINICAL HISTORY: screening,z12.39 TECHNIQUE: Bilateral full field digital CC and MLO mammographic images were obtained with 3D tomosyn thesis and utilizing computer aided detection (CAD). COMPARISON: Available for comparison. FINDINGS: Masses/Architectural Distortion: None seen. Microcalcifications: No suspicious pleomorphic-type are seen. Stable calcifications seen in the centr al medial left breast appears stable. It has the appearance of fat necrosis. Skin Thickening/Nipple Retraction: None. IMPRESSION: 1. No significant interval change with no specific features of malignancy noted. 2. Unless there is more urgent need, screening mammography is recommended, as per [place] [employer] guidelines. BI-RADS Category 2 - Benign Findings Breast Density - Category A - Almost entirely fatty Breast density category C or D implies that the patient has dense breast tissue. Dense breast tissue is very common and is not abnormal but dense breast tissue can make it harder to find cancer on a ma mmogram. Also, dense breast tissue may increase their breast cancer risk. This information about the result of the mammogram report was provided to the patient to raise their awareness. Use this report when you speak with the patient about their risks for breast cancer, which includes their family hist ory. At that time, you may recommend for more screening tests (Ultrasound or MRI) as they might be us eful based on their risk. A negative radiographic report should not delay biopsy if a dominant or clinically suspicious mass is present. Up to ten percent of cancers are not identified on mammography. A negative report may reinforce clinical impression. Adenosis and dense breasts may obscure an underlying neoplasm. False positive reports average 6 to 10%. Patient will receive a letter notifying them of these results.
== END ==
PROVIDERS: PCP Family Medicine; Visit Provider Family Medicine
DX: Z12.31 Encounter for screening mammogram for malignant neoplasm of breast (principal); Z13.820 Encounter for screening for osteoporosis; Z78.0 Asymptomatic menopausal state
CPT/HCPCS: 77063; 77067; 77080

== ENCOUNTER 2023-11-14 09:58 | Emergency (ER) | payer MEDICAID, SELFPAY ==
[2023-11-14] VITALS (21 sets, daily range): BP systolic 104–161; BP diastolic 57–85; PULSE 62–76; RESP 11–23; TEMP 36.8–37.3; O2SAT 96–99
--- NOTE | 2023-11-14 10:30 | RT.EKG_ITS ---
APPROVED REPORT Exam: Resting ECG Reason for Exam: abdominal pain Patient Location: E HR:66 bpm ECG Measurements Heart Rate 66 AXIS TN 137 P 50 QRSd 90 QRS -6 QT 416 T -8 QTc 436 Conclusion Sinus rhythm.. V-rate 60- [address]. [address] segement or T wave abnormalitites to suggest occlusive [place]
--- NOTE | 2023-11-14 10:32 | W.ED.GENAD ---
Discharge Plan Disposition Patient Disposition: Home Condition: Good Discharge Details Clinical Impression: Colitis Primary Care Provider: Itzel Nelson ED Provider: Catherine Eugene Home Meds and New Rx's Prescriptions: New ondansetron 4 mg tablet,disintegrating 4 mg PO Q8H PRNQty: 14 0RF oxycodone 5 mg tablet 5 mg PO Q8H PRNQty: 14 0RF No Action triamcinolone acetonide 0.1 % cream 1 applic topical BID Qty: 80 0RF Rx Instructions: apply to foot omeprazole 20 mg capsule,delayed release(DR/EC) 20 mg PO DAILY Qty: 90 4RF furosemide 20 mg tablet 20 mg PO DAILY PRN (Reason: edema) Qty: 60 3RF Hold Instructions: Prescription Finished acetaminophen [Tylenol Extra Strength] 500 MG tablet 1,000 mg PO PRN ibuprofen 200 MG capsule 200 mg PO PRN meclizine 12.5 mg tablet 12.5 mg PO DAILY PRN (Reason: dizziness) Qty: 30 0RF losartan 25 mg tablet 25 mg PO DAILY Qty: 90 4RF Discharge Instructions Instructions: Infectious Colitis (ED) Additional Instructions: Tylenol and ibuprofen over the counter for pain; follow the directions on the bottle. Oxycodone up to every 8 hours as needed for pain that does not respond to over the counter mediation Zofran up to every 8 hours for nausea or vomiting. Call your primary care doctor today to schedule an appointment within the next 3 days to follow up on your visit today. Mention that your potassium and magnesium were low, they may want to recheck these. Return to the emergency department for new or worsening symptoms, including inability to keep down fluids, pain that does not respond medication, feeling lightheaded or like you are going to pass out, or if you have any other concerns. Referrals: Itzel Nelson MD, [place] [Primary Care Provider] - Medical Decision Making 63yo F with hx of DM, gastritits, GERD HTN, presenting for diffuse abdominal pain and bloody diarrhea x 2-3 days. Pain is crampy, severe, intermittent, and radiates into her back. Has had 5-6 episodes/day of loose stool, some mucous and blood present. No fevers, otherwise in her usual state of health. Hypertensive on arrival, maria luz signs otherwise reassuring. Diffuse tenderness on exam with no peritoneal signs. Given 1L IVFB, morphine, zofran for symptoms. Labs reviewed as below, CBC with leukocytosis to 13, no anemia, CMP with mild hypokalemia (3.0) otherwise reassuring, magnesium slightly low at 1.6. K and Mg orally replaced. Lactate normal. UA not infected, no hematuria to suggest kidney stone. CT independently reviewed, no obstruction or free fluid on my view, discussed with radiologist Dr. Driscoll and agree with radiology read below with saenz-colitis. Low suspicion for mesenteric ischemia given reassuring lactate, no significant risk factors aside from age, not truly pain out of proportion on exam. Suspect gastroenteritis; bacterial is possible. Will send stool for analysis (send-out); would not treat with abx until stool results. PO challenged and tolerated well. On reassessment she remains non-toxic appearing with reassuring vital signs. Discharged home to close followup with PCP; discharge instructions and return precautions were reviewed with patient who verbalized understanding. All questions were answered and she is in full agreement with the plan. Medical Records Medical records reviewed: Yes I reviewed the patient's medical records. Lab Data Lab results reviewed: Yes I reviewed the patient's lab results. Labs: Laboratory Tests Range/Units 11/14/23 11/14/23 11/14/23 10:20 11:15 12:52 WBC (4.4-10.8) 10^3/uL 13.00 H RBC (3.93-5.22) 10^6/uL 4.41 Hgb (11.2-15.7) g/dL 12.7 Hct (36.0-46.0) % 38.0 MCV (80-95) fL 86 MCH (27.0-33.0) pg 28.8 MCHC (32.0-36.0) % 33.4 RDW (11.7-14.6) % 13.4 Plt Count (130-400) 10^3/uL 280 MPV (8.0-11.0) fL 9.9 Immature Gran % 1.2 Neutrophils % 83.1 Lymphocytes % 10.0 Monocytes % 5.0 Eosinophils % 0.5 Basophils % 0.2 Nucleated RBC % (0.0-0.3) % 0.0 Absolute Neutrophils (1.2-6.7) 10^3/uL 10.80 H Absolute Lymphocytes (1.2-3.4) 10^3/uL 1.30 Absolute Monocytes (0.1-0.8) 10^3/uL 0.65 Absolute Eosinophils (0.0-0.7) 10^3/uL 0.07 Absolute Basophils (0.0-0.2) 10^3/uL 0.03 VBG Lactate (0.6-1.4) mmol/L 0.8 Sodium (136-145) mmol/L 139 Potassium (3.5-5.1) mmol/L 3.0 L Chloride (98-107) mmol/L 102 Carbon Dioxide (21.0-32.0) mmol/L 28.7 Anion Gap (3-11) mmol/L 8.3 BUN (7-18) mg/dL 13 Creatinine (0.55-1.02) mg/dL 0.9 Est GFR (CKD-EPI 2020) (mL/min/1.73m2) 71.83 Glucose (74-106) mg/dL 133 H Calcium (8.5-10.1) mg/dL 9.2 Magnesium (1.8-2.4) mg/dL 1.6 L Total Bilirubin (0.2-1.0) mg/dL 0.5 AST (15-37) U/L 21 ALT (14-59) U/L 31 Alkaline Phosphatase (46-116) U/L 82 Troponin I (<or=60) ng/L < 50 Total Protein (6.4-8.2) g/dL 7.4 Albumin (3.4-5.0) g/dL 3.1 L Lipase (16-77) U/L 25 Urine Color (Yellow) Yellow Urine Clarity (Clear) Clear Urine pH (5-8) 6.0 Ur Specific [place] (1.005-1.025) 1.015 Urine Protein (Negative) mg/dL Negative Urine Ketones (Negative) mg/dL 40 H Urine Blood (Negative) Negative Urine Nitrite (Negative) Negative Urine Bilirubin (Negative) Negative Urine Urobilinogen (Up to 0.2) mg/dL 0.2 Ur Leukocyte Esterase (Negative) Negative Urine Glucose (Negative) mg/dL Negative HPI General Mode of arrival: ambulatory. Date/Time Provider Initiated Documentation: 11/14/23 10:03. Limitations to Documentation: no limitations. Information obtained by: patient. HPI Narrative: 63yo F with hx of DM, gastritits, GERD HTN, presenting for diffuse abdominal pain and bloody diarrhea x 2-3 days. Pain is crampy, severe, intermittent, and radiates into her back. Has had 5-6 episodes/day of loose stool, some mucous and blood present. Some nausea , no vomiting. No fevers. No known sick contacts. She is otherwise in her usual state of health with no chills, rash, chest pain, shortness of breath, lightheadedness, or other concerns. Related Data Home Medications Medication Instructions Recorded Confirmed acetaminophen 500 mg tablet 1,000 mg PO PRN 10/17/17 11/14/23 (Tylenol Extra Strength) ibuprofen 200 mg capsule 200 mg PO PRN 02/20/18 11/14/23 triamcinolone acetonide 0.1 % 1 applic topical BID #80 grams 08/22/22 11/14/23 topical cream meclizine 12.5 mg tablet 12.5 mg PO DAILY PRN dizziness #30 10/14/22 11/14/23 tabs losartan 25 mg tablet 25 mg PO DAILY #90 tabs 05/23/23 11/14/23 furosemide 20 mg tablet 20 mg PO DAILY PRN edema #60 tabs 08/31/23 11/14/23 omeprazole 20 mg capsule,delayed 20 mg PO DAILY #90 caps 08/31/23 11/14/23 release ondansetron 4 mg disintegrating 4 mg PO Q8H PRN #14 tabs 11/14/23 tablet oxycodone 5 mg tablet 5 mg PO Q8H PRN #14 tabs 11/14/23 Previous Rx's Medication Instructions Recorded triamcinolone acetonide 0.1 % 1 applic topical BID #80 grams 08/22/22 topical cream meclizine 12.5 mg tablet 12.5 mg PO DAILY PRN dizziness #30 10/14/22 tabs losartan 25 mg tablet 25 mg PO DAILY #90 tabs 05/23/23 furosemide 20 mg tablet 20 mg PO DAILY PRN edema #60 tabs 08/31/23 omeprazole 20 mg capsule,delayed 20 mg PO DAILY #90 caps 08/31/23 release ondansetron 4 mg disintegrating 4 mg PO Q8H PRN #14 tabs 11/14/23 tablet oxycodone 5 mg tablet 5 mg PO Q8H PRN #14 tabs 11/14/23 Allergies Allergy/AdvReac Type Severity Reaction Status Date / Time shellfish derived Allergy Unknown Verified 11/14/23 12:20 General Stated Complaint: Abd Prob DAVID: 3 Review of Systems Narrative: see HPI PFSH All Active Problems (Updated 11/14/23 @ 14:28 by Catherine Eugene MD) Colitis (Acute) Headache (Acute) Encounter for gynecological examination (Acute) Encounter for IUD removal (Acute) Thoracic back pain (Acute) Diabetes mellitus (Chronic) Dermatitis, dyshidrotic (Acute) Advance care planning (Acute) Gastritis (Acute ~04/2021) Normal colonoscopy (Acute ~04/2021) Diverticula of colon (Acute) Bile reflux gastritis (Acute) Encounter for screening colonoscopy (Acute) Diabetes mellitus (Chronic) Change in bowel function (Acute) Hand pain (Acute) Eczema (Acute) Anal pruritus (Acute) Right hip pain (Acute) Polyp of colon (Chronic) 03/31 COLONOSCOPY: TUBULAR ADENOMA; DR. PEREZ HX of heme positive stools Osteoporosis (Chronic) Onychomycosis (Chronic 10/20/14) Language barrier (Chronic) speaks Bangladeshi/Romansh combination Gastroesophageal reflux disease without esophagitis (Chronic) 1999 UGI: POS REFLUX/DUODENAL CAP; 05/29 08/30: POS H.PYLORI; 03/31 EGD: GASTRITIS, NEG H. PYLORI REFLUX Anxiety (Chronic) Medical History (Updated 11/14/23 @ 14:28 by Catherine Eugene MD) Uterine leiomyoma POSTERIOR FIBROID/ INCREASED ENDOMETRIAL STRIP Surgical History (Updated 05/20/21 @ 10:22 by Shae Powell RN) History of colonoscopy (~05/14/21) History of esophagogastroduodenoscopy (EGD) (~05/14/21) H/O reduction mammoplasty Tonsillectomy (~09/2006) Colonoscopy - MAC Cholecystectomy (~03/2001) Family History (Updated 10/21/20 @ 12:36 by Nataliia Shelton) Mother Asthma Diabetes Hypertension Adopted Father Stroke Hypertension Sister Diabetes Hypertension Sister Diabetes Breast cancer Hyperlipidemia Hypertension Sister Diabetes Hypertension Sister Diabetes Sister Depression Diabetes Hypertension Heart disease Hyperlipidemia Sister No problems noted. Sister No problems noted. Brother Kidney disease Diabetes Hyperlipidemia Hypertension Brother Asthma Diabetes Hypertension Brother , 9 MONTH No problems noted. Brother , 9 MONTH No problems noted. Brother , STILLBORN No problems noted. Sister No problems noted. Son Depression Son No problems noted. Daughter , AGE 14 MVA No problems noted. Maternal Grandfather Asthma Paternal Grandfather No problems noted. Maternal Grandmother Asthma Paternal Grandmother No problems noted. 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 Pets and animals: Yes Pets and animals: dog(s) Sexually active: Yes Current gender identity: decline to answer What is your relationship status?: How often do you talk on the phone with friends or family?: three or more times per week How often do you get together with friends or relatives?: decline to answer How often do you attend zoroastrianism or hoahaoism services?: decline to answer Do you belong to any clubs or organized social groups?: decline to answer Panel score (0-1 are the most socially isolated patients): 2 What type of physical activity do you participate in: decline to answer Duration: decline to answer Frequency: decline to answer Carla/Adventist: Restorationism Special carla needs: No Seatbelt use: always Drive intox or ride w/intox driver wheelchair: No Do you feel safe at home: Yes Do you feel safe in your relationship?: Yes Female Reproductive History Menstrual Menopause type: natural History History 4 Para Hx # Term Pregnancies 3 Multiple births Hx # Pregnancies Ectopic pregnancies AB induced Hx Number of Living Children AB spontaneous Exam Narrative Exam Narrative: General: Alert, well appearing, well nourished, in no acute distress. Head: Normocephalic, atraumatic Neck: Trachea midline, ?Neck supple. ENT: ?MMM.? Cardiac: ?RRR, no murmurs appreciated Resp: No respiratory distress. CTAB. Abd: ?Soft, non-distended, diffusely tender to palpation with no rebound or guarding : ?No suprapubic tenderness. No CVA tenderness. Extremities: ?No deformities.? No peripheral edema. Neurologic: GCS 15. ? Moves all extremities freely against gravity Course Vital Signs Vital signs: Vital Signs Temperature 37.3 C 11/14/23 10:08 Pulse 72 11/14/23 10:08 Respiratory Rate 20 11/14/23 10:08 Blood Pressure 161/84 H 11/14/23 10:08 Pulse Oximetry 98 11/14/23 10:08 Temperature 37.3 C 11/14/23 10:08 Temperature Source Temporal Artery Scan 11/14/23 10:08 Pulse 72 11/14/23 10:08 Respiratory Rate 20 11/14/23 10:08 Respiratory Effort Normal 11/14/23 10:26 Blood Pressure 161/84 H 11/14/23 10:08 Blood Pressure Position Sitting 11/14/23 10:08 Pulse Oximetry 98 11/14/23 10:08 Oxygen Delivery Method Room Air 11/14/23 10:08 Oxygen Flow Rate 0 11/14/23 10:08
[2023-11-14 10:46] LABS: Abs Immature Grans 0.16 10^3/uL (0.0-0.06); Absolute Basophil Count 0.03 10^3/uL (0.0-0.2); Absolute Eosinophil Count 0.07 10^3/uL (0.0-0.7); Absolute Monocyte Count 0.65 10^3/uL (0.1-0.8); Basophils % 0.2; Eosinophils % 0.5; HGB 12.7 g/dL (11.2-15.7); Immature Grans % 1.2; MCH 28.8 pg (27.0-33.0); MCHC 33.4 % (32.0-36.0); MCV 86 fL (80-95); MPV 9.9 fL (8.0-11.0); Neutrophils % 83.1; Platelet Count 280 10^3/uL (130-400); RBC 4.41 10^6/uL (3.93-5.22); RDW 13.4 % (11.7-14.6); RDW-SD 42.2 fL
[2023-11-14] MEDS: Ondansetron 4 MG/2 ML VIAL IVP (10:46)
[2023-11-14] MEDS: FAMOTIDINE 20 MG in Normal Saline 100 ML 400 MG IVPB (10:46)
[2023-11-14] MEDS: Mylanta Suspension 30 ML CUP 20 ML PO (10:47)
[2023-11-14] MEDS: Normal Saline 1,000 ML 1000 ML IV (10:47)
[2023-11-14] MEDS: MORPHine 10 MG/ML VIAL 4 MG IVP (10:47)
[2023-11-14 11:08] LABS: ALT 31 U/L (14-59); AST 21 U/L (15-37); Albumin 3.1 g/dL (3.4-5.0); Alkaline Phosphatase 82 U/L (46-116); Anion Gap 8.3 mmol/L (3-11); BUN 13 mg/dL (7-18); Bilirubin, Total 0.5 mg/dL (0.2-1.0); CO2 28.7 mmol/L (21.0-32.0); CREATININE 0.9 mg/dL (0.55-1.02); Calcium 9.2 mg/dL (8.5-10.1); Chloride 102 mmol/L (98-107); Estimated GFR 71.83 (mL/min/1.73m2); Glucose 133 mg/dL (74-106); Lipase 25 U/L (16-77); Magnesium 1.6 mg/dL (1.8-2.4); Sodium 139 mmol/L (136-145); Total Protein 7.4 g/dL (6.4-8.2); Troponin I < 50 ng/L (<or=60)
[2023-11-14 11:28] LABS: Bilirubin Negative (Negative); Blood Negative (Negative); Clarity Clear (Clear); Glucose Negative (Negative); Ketones 40 mg/dL (Negative); Leukocyte Esterase Negative (Negative); Nitrite Negative (Negative); Specific Gravity 1.015 (1.005-1.025); Urobilinogen 0.2 mg/dL (Up to 0.2)
[2023-11-14] MEDS: Potassium Chloride 20 MEQ TABCR 40 MEQ PO (11:33)
[2023-11-14] MEDS: Magnesium Gluconate 500 MG TAB PO (11:34)
[2023-11-14] MEDS: Normal Saline - Diluent 50 ML VIAL IJ (11:51)
[2023-11-14] MEDS: Omnipaque 350 MG/ML 500 ML BTL-Imaging package 100 ML IJ (11:52)
--- NOTE | 2023-11-14 12:05 | DI.CT_ITS ---
Exam(s) CT ABDOMEN PELVIS W EXAM: CT ABDOMEN PELVIS W CLINICAL HISTORY: diffuse abdominal pain, bloody stool. TECHNIQUE: Imaging Protocol: Axial computed tomography images with coronal and sagittal reformatted images were created and reviewed CONTRAST MATERIAL: Intravenous: Omnipaque-350 100cc Oral: None COMPARISON: CT CTA BRAIN from 09/15/2017 FINDINGS: VISUALIZED LUNG BASES: No nodules nor pleural effusions evident. ABDOMEN: There is no ascites. GI: There is no evidence of small-bowel obstruction, free air, nor abscess. However, there is a diff use saenz colitis pattern involving the entire colon, including the rectosigmoid. There are diverticul i in the sigmoid but no evidence of obvious acute diverticulitis. LIVER: There is a benign-appearing cyst in the right hepatic lobe measuring 10 x 8 mm. Another simil ar size cyst is seen slightly lower down in the right hepatic lobe and an even smaller cysts seen in the further down right hepatic lobe. Subcapsular low-density in the anterior liver adjacent to the i nter lobar fissure is probably focal fatty change which is a common finding at this level. There is a small benign-appearing cyst in the left hepatic lobe measuring 7 x 5 mm. Mildly dilated ducts are noted in the liver as well as slight prominence of the CBD diameter in this post cholecystectomy betzy ent. GALLBLADDER/BILIARY: Gallbladder surgically absent. CBD dilated to in 10 mm. No calculi nor obvious masses related to the CBD. PANCREAS: No evidence of pancreatic head mass nor other significant mass in the pancreas. Pancreatic duct diameter is normal. SPLEEN: Spleen is not enlarged. No obvious intrasplenic lesions. Splenic and portal veins are paten t. ADRENALS: There are no significant adrenal masses. KIDNEYS:No cysts evident. No solid renal masses. No calculi nor hydronephrosis.. ABDOMINAL AORTA: Abdominal aorta is not enlarged. LYMPH NODES:There is no retroperitoneal nor paraaortic adenopathy. ABDOMINAL WALL: No evidence of significant anterior abdominal wall nor inguinal hernia. PELVIS: GI: No evidence of appendicitis.No evidence of sigmoid diverticulitis. LYMPH NODES: There is no intrapelvic nor inguinal adenopathy. REPRODUCTIVE: There appears to be an enhancing left-sided uterine fibroid measuring approximately 1.5 x 1.2 cm. Other smaller fibroids are noted near the fundus. No significant adnexal masses. No karyna e fluid in the cul-de-sac. URINARY BLADDER: No calculi nor obvious masses evident OSSEOUS: No fractures and no significant osseous lesions. Sacroiliac joints appear unremarkable. IMPRESSION: 1. The main finding here is saenz colitis. The entire colon is significantly edematous, including the rectosigmoid. 2. There are sigmoid diverticuli but no obvious acute diverticulitis. Also no evidence of appendicit is. 3. No bowel obstruction, free air, nor abscess. 4. Benign cysts are noted in the liver. 5. Gallbladder surgically absent. Mild dilatation of the biliary tree is most probably secondary to post cholecystectomy status. Report called by myself to ER physician. RADIATION DOSE DELIVERED: Total DLP DATA REPOSITORY: All CT scans at this facility are submitted to the National Radiology Data Registry (NRDR) Dose Index Registry (DIR) with the [employer] (ACR). RADIATION OPTIMIZATION: All CT scans at this facility use at least one of these dose optimization te chniques: automated exposure control; mA and/or kV adjustment per patient size (includes targeted exa ms where dose is matched to clinical indication); or iterative reconstruction.
[2023-11-14 12:57] LABS: Lactate 0.8 mmol/L (0.6-1.4)
[2023-11-14] MEDS: oxyCODONE 5 MG TAB PO (13:08)
[2023-11-14 14:08] LABS: C Diff PCR Negative (Negative)
[2023-11-15 13:15] LABS: Campylobacter PCR Negative (Negative); Salmonella PCR Negative (Negative); Shiga Toxin PCR Negative (Negative); Shigella/Enteroinvasive Ecoli Negative (Negative)
== END 2023-11-14 14:52 | disposition home or self-care (01) ==
PROVIDERS: Emergency Provider Student in an Organized Health Care Education/Training Program; PCP Family Medicine
DX: K52.89 Other specified noninfective gastroenteritis and colitis (principal); D25.9 Leiomyoma of uterus, unspecified; K76.89 Other specified diseases of liver; E11.9 Type 2 diabetes mellitus without complications; I10 Essential (primary) hypertension
CPT/HCPCS: 80053; 83690; 87493; 87505; 93005; 96361; 96374; 96375; 99285; 74177; 81003; 83605; 83735; 84484; 85025; 93010; 99284; J2270; J2405

== ENCOUNTER 2024-02-13 10:43 | Outpatient (CLI) | payer MEDICAID, SELFPAY ==
[2024-02-13 12:24] LABS: HCT 39.6 % (36.0-46.0); HGB 12.8 g/dL (11.2-15.7); MCH 29.5 pg (27.0-33.0); MCHC 32.3 % (32.0-36.0); MCV 91 fL (80-95); MPV 10.5 fL (8.0-11.0); Platelet Count 219 10^3/uL (130-400); RBC 4.34 10^6/uL (3.93-5.22); RDW 13.8 % (11.7-14.6); RDW-SD 46.9 fL; WBC 4.93 10^3/uL (4.4-10.8)
[2024-02-13 12:36] LABS: Hemoglobin A1C 6.7 % (<5.7)
[2024-02-13 12:47] LABS: ALT 25 U/L (14-59); AST 18 U/L (15-37); Albumin 3.5 g/dL (3.4-5.0); Alkaline Phosphatase 91 U/L (46-116); Anion Gap 9.6 mmol/L (3-11); BUN 20 mg/dL (7-18); Bilirubin, Total 0.5 mg/dL (0.2-1.0); CO2 27.4 mmol/L (21.0-32.0); CREATININE 0.9 mg/dL (0.55-1.02); Calcium 9.6 mg/dL (8.5-10.1); Chloride 106 mmol/L (98-107); Estimated GFR 71.83 (mL/min/1.73m2); Glucose 113 mg/dL (74-106); Sodium 143 mmol/L (136-145); Total Protein 7.5 g/dL (6.4-8.2)
== END 2024-02-13 10:44 | disposition home or self-care (01) ==
LOC: LOS 10:43
PROVIDERS: PCP Family Medicine; Referring Provider Family Medicine; Visit Provider Family Medicine
DX: I10 Essential (primary) hypertension (principal); E11.9 Type 2 diabetes mellitus without complications; R10.9 Unspecified abdominal pain
CPT/HCPCS: 36415; 80053; 85027; 83036

== ENCOUNTER → 2024-02-14 03:09 | Outpatient (CLI) | payer MEDICAID, SELFPAY ==
--- NOTE | 2024-02-14 10:34 | DI.RAD_ITS ---
Exam(s) XR CERVICAL SPINE COMP 4-5V EXAM: XR CERVICAL SPINE COMP 4-5V CLINICAL HISTORY: neck pain,m54.2. TECHNIQUE: 2D digital imaging was performed. Five views were performed. COMPARISON: CR XR THORACIC SPINE COMPLETE from 10/10/2019 FINDINGS: BONES: No fracture or destructive lesion. Vertebral bodies are unremarkable. There are mild facet d egenerative changes. No neural foraminal narrowing. DISKS: Intervertebral disc spaces are maintained. ALIGNMENT: Cervical spinal alignment is within normal limits. The odontoid and atlantoaxial articulat ions are normal. SOFT TISSUE: Normal. The lung apices are clear. IMPRESSION: Mild degenerative changes. DATA REPOSITORY: RADIATION DOSE DELIVERED:
--- NOTE | 2024-02-14 10:34 | DI.RAD_ITS ---
Exam(s) XR SHOULDER LT COMPLETE 2+V EXAM: XR SHOULDER LT COMPLETE 2+V CLINICAL HISTORY: left shoulder pain,m25.512. TECHNIQUE: 2D digital imaging was performed. Five views. COMPARISON: MR MRI R UPPER JOINT WO CONT from 03/24/2017 FINDINGS: BONES: No acute fracture is present. No bony destructive lesion is seen. JOINTS: No dislocation present. Glenohumeral joint space is maintained. Minimal degenerative change s at the AC joint. SOFT TISSUE: Normal. IMPRESSION: Minimal degenerative changes. DATA REPOSITORY: RADIATION DOSE DELIVERED:
== END ==
PROVIDERS: PCP Family Medicine; Visit Provider Family Medicine
DX: M25.512 Pain in left shoulder (principal); M54.2 Cervicalgia
CPT/HCPCS: 72050; 73030

== ENCOUNTER → 2024-04-10 03:22 | Outpatient (CLI) | payer MEDICAID, SELFPAY ==
--- NOTE | 2024-04-10 10:50 | DI.MRI_ITS ---
Exam(s) MR UPPER JOINT LT WO EXAM: MR UPPER JOINT LT WO CLINICAL HISTORY: Failing PT x 3 wks,Worsening lt shoulder pain, xray neg,m25.512. TECHNIQUE: Multiplanar multisequence MRI was performed. COMPARISON: CR XR SHOULDER LT COMPLETE 2+V from 02/14/2024 FINDINGS: The examination is limited due to patient motion artifact. BONES: There is no fracture or contusion pattern. JOINTS: There are degenerative changes seen at the acromioclavicular joint. There are mild degenerat gucci changes seen at the glenohumeral joint. TENDONS: Supraspinatus: There is tendinosis of the supraspinatus tendon. There is hyperintense signal seen at the insertion site of the supraspinatus tendon on the greater tuberosity suggesting a small partial tear. Infraspinatus: Unremarkable. Subscapularis: Unremarkable. Teres Minor: Unremarkable. Biceps and Thayne: There is medial subluxation of the biceps tendon. There is a small amount of flui d seen around the biceps tendon. MUSCLES: Unremarkable. GLENOID LABRUM: Portions of the labrum are difficult to visualize secondary to the artifact. No defi nite evidence of a labral tear is seen on this noncontrast examination. SOFT TISSUES: Unremarkable. LIGAMENTS: Unremarkable. OTHER: Subacromial and subdeltoid bursae are unremarkable. IMPRESSION: 1. There is a small amount of fluid seen around the biceps tendon which is medially subluxed from the bicipital groove. 2. Examination limited by patient motion artifact. 3. Tendinosis of the supraspinatus tendon with a question of a partial tear at the insertion site. 4. Degenerative changes seen at the acromioclavicular and glenohumeral joints. DATA REPOSITORY:
== END ==
PROVIDERS: PCP Family Medicine; Visit Provider Nurse Practitioner Family
DX: M19.012 Primary osteoarthritis, left shoulder (principal)
CPT/HCPCS: 73221

== ENCOUNTER 2024-10-29 10:16 | Outpatient (REF) | payer MEDICAID, SELFPAY ==
[2024-10-29 13:46] LABS: COMMENT (LAB VIEW ONLY) 161.57 mg/dL
[2024-10-29 13:47] LABS: Microalb ug/mg Crea 1.2 ug/mg Cr
== END 2024-10-29 10:17 | disposition home or self-care (01) ==
LOC: LBN 10:16
PROVIDERS: PCP Family Medicine; Visit Provider Family Medicine
DX: E11.9 Type 2 diabetes mellitus without complications (principal)
CPT/HCPCS: 82043; 82570

== ENCOUNTER 2024-11-05 01:05 | Outpatient (CLI) | payer MEDICAID, SELFPAY ==
--- NOTE | 2024-11-05 07:15 | DI.MAMMO_ITS ---
Exam(s) MAMMO SCREENING EXAM: MAMMO SCREENING CLINICAL HISTORY: screening,Z12.39. TECHNIQUE: Bilateral full field digital CC and MLO mammographic images were obtained with 3D tomosyn thesis and utilizing computer aided detection (CAD). COMPARISON: Prior mammograms were reviewed. FINDINGS: There has been no significant change in the appearance and distribution of the fibroglandular tissue. Benign calcifications in the left breast are again noted, most probably related to fat necrosis in th is patient has had prior reduction surgery. There are no new spiculated masses nor new malignant appearing microcalcification groups. There is no new significant architectural distortion nor skin thickening-retraction. IMPRESSION: No radiographic evidence of malignancy. Stable benign findings. BI-RADS Category 1 - Negative Breast Density - Category A - Almost entirely fatty Breast density Category C or D implies that the patient has dense breast tissue. Dense breast tissue can make it harder to find cancer on a mammogram. Dense breast tissue is also associated with an incr eased risk of breast cancer. This information about the result of the mammogram report was provided to the patient to raise their awareness. Use this report when you speak with the patient about their risks for breast cancer, which includes their family history. At that time, you may recommend additional screening tests (Ultrasoun d or MRI) as these tests may add significant information. A negative radiographic report should not delay biopsy if a dominant or clinically suspicious mass is present. Up to ten percent of cancers are not identified on mammography. A negative report may reinforce clinical impression. Adenosis and dense breasts may obscure an underlying neoplasm. False positive reports average 6 to 10%. Patient will receive a letter notifying them of these results.
== END 2024-11-05 01:25 ==
PROVIDERS: PCP Family Medicine; Visit Provider Family Medicine
DX: Z12.31 Encounter for screening mammogram for malignant neoplasm of breast (principal); R92.313 Mammographic fatty tissue density, bilateral breasts
CPT/HCPCS: 77063; 77067

== ENCOUNTER 2025-03-24 04:03 | Emergency (ER) | payer MEDICAID, SELFPAY ==
[2025-03-24 04:08] VITALS: BP 134/116; PULSE 71; RESP 18; O2SAT 99
[2025-03-24 04:13] VITALS: RESP 18
--- NOTE | 2025-03-24 04:15 | RT.EKG_ITS ---
APPROVED REPORT Exam: Resting ECG Reason for Exam: SOB Patient Location: E HR:61 bpm ECG Measurements Heart Rate 61 AXIS SD 143 P 42 QRSd 89 QRS -1 QT 407 T -7 QTc 410 Conclusion Sinus rhythm...normal P axis, V-rate 60- 99 Physician: no stemi
--- NOTE | 2025-03-24 04:17 | ED.GENADUL_ITS ---
Discharge Plan Disposition Patient Disposition: Home Condition: Good Discharge Details Clinical Impression: Dehydration, Chills, UTI (urinary tract infection) Primary Care Provider: Itzel Nelson ED Provider: Jessee Mancini Home Meds and New Rx's Prescriptions: New cephalexin 500 mg capsule 500 mg PO QID 7 Days Qty: 28 0RF No Action furosemide 20 mg tablet 20 mg PO DAILY PRN (Reason: edema) Qty: 60 3RF meclizine 12.5 mg tablet 12.5 mg PO DAILY PRN (Reason: dizziness) Qty: 30 0RF acetaminophen [Tylenol Extra Strength] 500 MG tablet 1,000 mg PO PRN ibuprofen 200 MG capsule 200 mg PO PRN triamcinolone acetonide 0.1 % cream 1 applic topical BID Qty: 80 0RF Rx Instructions: apply to foot losartan 25 mg tablet 25 mg PO DAILY Qty: 90 4RF omeprazole 20 mg capsule,delayed release(DR/EC) 20 mg PO DAILY Qty: 90 4RF ondansetron 4 mg tablet,disintegrating 4 mg PO Q8H PRNQty: 14 0RF Discharge Instructions Instructions: Dehydration, Adult (DC), Upper Respiratory Infection ED Additional Instructions: At this time your flu and COVID test is negative. Your urine shows infection. Please take the antibiotic. Your EKG shows no heart problems. Please drink plenty of fluids (10 to 12 cups/day minimum), and get plenty of rest. If you notice any worsening of your symptoms, or any new symptoms such as vomiting, diarrhea, fever, chills, shortness of breath, chest pain, numbness, weakness, or fainting , please return immediately to the emergency department for reevaluation. Please follow up with your primary care provider as soon as possible for reassessment and reevaluation. As always, it was a pleasure participating in your medical care today. Referrals: Itzel Nelson MD, [place] [Primary Care Provider] - [facility] General Date/Time Provider Initiated Documentation: 03/24/25 04:08 . [facility] Narrative: This is a pleasant 64-year-old female with a past medical history of diabetes mellitus, GERD, anxiety, who presents today for evaluation of chills, and heavy sensation on her tongue with dry mouth, and some mild bodyaches. This all began within the last hour or so. She denies dysuria, chest pain, cough, vomiting, nausea or diarrhea. She denies any shortness of breath. She denies any chest heaviness or tightness. No other complaints at this other modifying factors Related Data Home Medications ?Medication ?Instructions ?Recorded ?Confirmed acetaminophen 500 mg tablet 1,000 mg PO PRN 10/17/17 03/24/25 (Tylenol Extra Strength) ibuprofen 200 mg capsule 200 mg PO PRN 02/20/18 03/24/25 furosemide 20 mg tablet 20 mg PO DAILY PRN edema #60 tabs 08/31/23 03/24/25 ondansetron 4 mg disintegrating 4 mg PO Q8H PRN #14 tabs 11/14/23 03/24/25 tablet triamcinolone acetonide 0.1 % 1 applic topical BID #80 grams 03/06/24 03/24/25 topical cream losartan 25 mg tablet 25 mg PO DAILY #90 tabs 06/03/24 03/24/25 omeprazole 20 mg capsule,delayed 20 mg PO DAILY #90 caps 06/03/24 03/24/25 release meclizine 12.5 mg tablet 12.5 mg PO DAILY PRN dizziness #30 10/29/24 03/24/25 tabs cephalexin 500 mg capsule 500 mg PO QID 7 days #28 caps 03/24/25 Previous Rx's ?Medication ?Instructions ?Recorded furosemide 20 mg tablet 20 mg PO DAILY PRN edema #60 tabs 08/31/23 ondansetron 4 mg disintegrating 4 mg PO Q8H PRN #14 tabs 11/14/23 tablet triamcinolone acetonide 0.1 % 1 applic topical BID #80 grams 03/06/24 topical cream losartan 25 mg tablet 25 mg PO DAILY #90 tabs 06/03/24 omeprazole 20 mg capsule,delayed 20 mg PO DAILY #90 caps 06/03/24 release meclizine 12.5 mg tablet 12.5 mg PO DAILY PRN dizziness #30 10/29/24 tabs cephalexin 500 mg capsule 500 mg PO QID 7 days #28 caps 03/24/25 Allergies Allergy/AdvReac Type Severity Reaction Status Date / Time shellfish derived Allergy Intermediate Difficulty Verified 03/24/25 04:13 breathing General Stated Complaint: GenMedical DAVID: 4 Exam Narrative Exam Narrative: 1.Const: Well-nourished, Well-developed, appearing stated age 2.Eyes: PERRL, no conjunctival injection, and symmetrical lids. 3.ENT: Atraumatic external nose and ears. Dry MM. Neck: Symmetric, trachea midline, No thyromegaly. Tympanic membranes valentine and pearly. No erythema in the posterior oropharynx. No lesions on the tongue. 4.CVS: +S1/S2, Peripheral pulses 2+ and equal in all extremities. Brisk capillary refill in all extremities. 5.RESP: Unlabored respiratory effort. Clear to auscultation bilaterally. No wheezes rales or rhonchi 6.GI: Soft, Nontender/Nondistended, No hepatosplenomegaly. No guarding or rebound. 7.MSK: Normocephalic/Atraumatic, Extremities w/o deformity or ttp No cyanosis or clubbing, Normal movement of all extremities 8.Skin: Warm, Dry. No rashes or lesions. 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 Sensation grossly intact, no focal neurologic deficits. 10.Psych: (AAO) x3. Appropriate mood and affect Course Vital Signs Vital signs: Vital Signs Pulse 71 03/24/25 04:08 Respiratory Rate 18 03/24/25 04:08 Blood Pressure 134/116 H 03/24/25 04:08 Pulse Oximetry 99 03/24/25 04:08 Pulse 71 03/24/25 04:08 Respiratory Rate 18 03/24/25 04:13 Respiratory Effort Normal 03/24/25 04:13 Respiratory Depth Normal 03/24/25 04:13 Respiratory Pattern Normal 03/24/25 04:13 Blood Pressure 134/116 H 03/24/25 04:08 Blood Pressure Position Sitting 03/24/25 04:08 Pulse Oximetry 99 03/24/25 04:08 Oxygen Delivery Method Room Air 03/24/25 04:08 Oxygen Flow Rate 0 03/24/25 04:08 Medical Decision Making This is a pleasant 64-year-old female with a past medical history of diabetes mellitus, GERD, anxiety, who presents today for evaluation of chills, and heavy sensation on her tongue with dry mouth, and some mild bodyaches. This all began within the last hour or so. She denies dysuria, chest pain, cough, vomiting, nausea or diarrhea. She denies any shortness of breath. She denies any chest heaviness or tightness. No other complaints at this other modifying factors Exam demonstrates clear lung sounds, no evidence to suggest pneumonia. Notably dry mucous membranes suggestive of dehydration. Tongue and mouth show no evidence of oral lesions or other atypical components, however with her chills I do feel that further evaluation is warranted. No indication for chest x-ray she has no cough. No evidence to suggest pneumonia on auscultation. We will get a UA to test for infection of the urine, we will get a flu and COVID for further viral testing. I did give the patient 2 cups of water to drink. Will get a screening EKG, monitor closely and reassess. She has no fever or tachycardia to suggest sepsis. No hypotension or shock to suggest septic shock. 525 Urinary tract infection is noted ordered UA. COVID and flu negative. EKG negative. Patient feels well and remains hemodynamically stable. Will give Keflex for treatment. Discussed red flags for which to return. I have extensively reviewed the treatment plan and discharge instructions with the patient. I have addressed all patient concerns at this time. The patient was made aware of what symptoms to monitor for that would warrant a return to the emergency department. Discussed the plan with the patient, they demonstrate verbal understanding and agreement with our assessment and plan at this time. The documentation in this chart was dictated using [employer] dictation software. Please excuse any dictation errors. Quality:SDOH Health Related Social Needs: Health related social needs details none verbalized PFSH All Active Problems (Updated 03/24/25 @ 05:20 by Jessee Mancini DO) UTI (urinary tract infection) (Acute) Chills (Acute) Dehydration (Acute) Partial tear of left rotator cuff (Acute) Tendinopathy of left biceps tendon (Acute) Left shoulder pain (Acute) Headache (Acute) Encounter for gynecological examination (Acute) Encounter for IUD removal (Acute) Thoracic back pain (Acute) Diabetes mellitus (Chronic) Dermatitis, dyshidrotic (Acute) Advance care planning (Acute) Gastritis (Acute ~04/2021) Normal colonoscopy (Acute ~04/2021) Diverticula of colon (Acute) Bile reflux gastritis (Acute) Encounter for screening colonoscopy (Acute) Diabetes mellitus (Chronic) Change in bowel function (Acute) Hand pain (Acute) Eczema (Acute) Anal pruritus (Acute) Right hip pain (Acute) Polyp of colon (Chronic) 03/31 COLONOSCOPY: TUBULAR ADENOMA; DR. PEREZ HX of heme positive stools Osteoporosis (Chronic) Onychomycosis (Chronic 10/20/14) Language barrier (Chronic) speaks Sami/[place] Islander combination Gastroesophageal reflux disease without esophagitis (Chronic) 1999 UGI: POS REFLUX/DUODENAL CAP; 05/29 08/30: POS H.PYLORI; 03/31 EGD: GASTRITIS, NEG H. PYLORI REFLUX Anxiety (Chronic) Medical History Uterine leiomyoma POSTERIOR FIBROID/ INCREASED ENDOMETRIAL STRIP Surgical History History of colonoscopy (~05/14/21) History of esophagogastroduodenoscopy (EGD) (~05/14/21) H/O reduction mammoplasty Tonsillectomy (~09/2006) Colonoscopy - MAC Cholecystectomy (~03/2001) Family History (Updated 10/30/24 @ 10:48 by Yumiko Tamez) Mother Asthma Diabetes Hypertension Adopted Father Stroke Hypertension Sister Diabetes Hypertension Sister Diabetes Breast cancer Hyperlipidemia Hypertension Sister Diabetes Hypertension Sister Diabetes Sister Depression Diabetes Hypertension Heart disease Hyperlipidemia Sister No problems noted. Sister No problems noted. Brother , 01/2023 Kidney disease Diabetes Hyperlipidemia Hypertension Brother Asthma Diabetes Hypertension Brother , 9 MONTH No problems noted. Brother , 9 MONTH No problems noted. Brother , STILLBORN No problems noted. Sister No problems noted. Son Depression Son No problems noted. Daughter , AGE 14 MVA No problems noted. Maternal Grandfather Asthma Paternal Grandfather No problems noted. Maternal Grandmother Asthma Paternal Grandmother No problems noted. 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 Pets and animals: Yes Pets and animals: dog(s) Sexually active: Yes Do you think of yourself as: decline to answer Current gender identity: female What is your relationship status?: How often do you talk on the phone with friends or family?: three or more times per week How often do you get together with friends or relatives?: once per week How often do you attend rastafarian or rastafarian services?: 1-3 times per year Do you belong to any clubs or organized social groups?: no Panel score (0-1 are the most socially isolated patients): 2 What type of physical activity do you participate in: none Frequency: does not exercise Carla/Zoroastrian: Nondenominational Special carla needs: No Seatbelt use: always Helmet use: No (N/A) Drive intox or ride w/intox 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
[2025-03-24 04:49] LABS: Bilirubin Negative (Negative); Blood Negative (Negative); Clarity Sl Cloudy (Clear); Glucose Negative (Negative); Ketones Negative (Negative); Leukocyte Esterase Moderate (Negative); Nitrite Negative (Negative); Specific Gravity <= 1.005 (1.005-1.025); Urobilinogen 0.2 mg/dL (Up to 0.2)
[2025-03-24 04:59] LABS: Bacteria Few HPF (Negative); Casts Negative LPF (Negative); Crystals Negative HPF (Negative); Epithelial Cells Few HPF (Negative); Mucus Trace (Negative); RBC Negative HPF (0-2)
[2025-03-24 05:00] LABS: C & S Indicated? Yes
[2025-03-24] MEDS: Cephalexin 500 MG CAP, 4 CAPS/BTL PO (05:30)
== END 2025-03-24 05:38 | disposition home or self-care (01) ==
PROVIDERS: Emergency Provider Student in an Organized Health Care Education/Training Program; PCP Family Medicine
DX: N39.0 Urinary tract infection, site not specified (principal); R68.83 Chills (without fever); I10 Essential (primary) hypertension; E11.9 Type 2 diabetes mellitus without complications
CPT/HCPCS: 87426; 93005; 99284; 81003; 81015; 87086; 93010

== ENCOUNTER 2025-04-01 13:09 | Outpatient (REF) | payer MEDICAID, SELFPAY ==
[2025-04-01 13:35] LABS: Bilirubin Negative (Negative); Blood Trace-intact (Negative); Clarity Cloudy (Clear); Glucose Negative (Negative); Ketones Negative (Negative); Leukocyte Esterase Small (Negative); Nitrite Negative (Negative); Specific Gravity 1.015 (1.005-1.025); Urobilinogen 0.2 mg/dL (Up to 0.2); pH 5.5 (5-8)
[2025-04-01 13:50] LABS: RBC 0-2 HPF (0-2)
[2025-04-01 13:51] LABS: Bacteria Moderate HPF (Negative); C & S Indicated? No; Casts Negative LPF (Negative); Crystals Moderate Amorphous HPF (Negative); Epithelial Cells Moderate HPF (Negative); Mucus Negative (Negative)
== END 2025-04-01 13:10 | disposition home or self-care (01) ==
LOC: LBN 13:09
PROVIDERS: PCP Family Medicine; Visit Provider Family Medicine
DX: N39.0 Urinary tract infection, site not specified (principal)
CPT/HCPCS: 81003; 81015

== ENCOUNTER 2025-04-03 17:38 | Outpatient (REF) | payer MEDICAID, SELFPAY ==
[2025-04-03 21:35] LABS: Bilirubin Negative (Negative); Blood Negative (Negative); Clarity Clear (Clear); Glucose Negative (Negative); Ketones Negative (Negative); Leukocyte Esterase Negative (Negative); Nitrite Negative (Negative); Specific Gravity 1.025 (1.005-1.025); Urobilinogen 0.2 mg/dL (Up to 0.2)
== END 2025-04-03 17:39 | disposition home or self-care (01) ==
LOC: LBN 17:38
PROVIDERS: PCP Family Medicine; Visit Provider Family Medicine
DX: R31.9 Hematuria, unspecified (principal)
CPT/HCPCS: 81003

== ENCOUNTER → 2025-09-29 02:21 | Outpatient (CLI) | payer MEDICAID, SELFPAY ==
--- NOTE | 2025-09-29 07:00 | DI.RAD_ITS ---
Exam(s) XR ANKLE RT COMPLETE EXAM: XR ANKLE RT COMPLETE CLINICAL HISTORY: ankle pain,RT,M25.579. TECHNIQUE: 2D digital imaging was performed of the right ankle. Three images were obtained. AP, lateral and oblique views were obtained. COMPARISON: No exams were available for comparison FINDINGS: BONES: No acute fracture is present. No bony destructive lesion is seen. There is a small plantar calcaneal spur. JOINTS: The ankle mortise is normally aligned. SOFT TISSUE: There is soft tissue swelling posterior to the calcaneus. The Achilles tendon shadow is poorly visualized. IMPRESSION: Soft tissue swelling posterior to the calcaneus. If there is concern for Achilles tendon injury, an MRI of the ankle is recommended. DATA REPOSITORY: RADIATION DOSE DELIVERED:
== END ==
LOC: DI 02:21
PROVIDERS: PCP Family Medicine; Visit Provider Family Medicine
DX: M25.571 Pain in right ankle and joints of right foot (principal)
CPT/HCPCS: 73610

== ENCOUNTER 2025-11-05 00:55 | Outpatient (CLI) | payer MEDICAID, SELFPAY ==
[2025-11-05 15:28] LABS: Vitamin B12 393 pg/mL (211-911)
[2025-11-05 15:30] LABS: ALT 21 U/L (10-49); AST 22 U/L (<34); Albumin 4.2 g/dL (3.2-5.0); Alkaline Phosphatase 90 U/L (46-116); Anion Gap 8.2 mmol/L (3-11); BUN 20 mg/dL (9-23); Bilirubin, Total 0.6 mg/dL (0.2-1.2); CO2 28.8 mmol/L (20.0-31.0); Calcium 9.2 mg/dL (8.3-10.6); Chloride 105 mmol/L (98-107); Glucose 126 mg/dL (74-106); Potassium 3.9 mmol/L (3.5-5.1); Sodium 142 mmol/L (136-145); Total Protein 7.4 g/dL (5.7-8.2)
[2025-11-05 17:01] LABS: Hemoglobin A1C 6.6 % (<5.7)
[2025-11-05 17:59] LABS: Cholesterol 183 mg/dL (<200); HDL Cholesterol 72 mg/dL (>40)
[2025-11-06 17:36] LABS: Microalb ug/mg Crea 3.1 ug/mg Cr
== END 2025-11-05 00:56 | disposition home or self-care (01) ==
LOC: LOS 00:55
PROVIDERS: PCP Family Medicine; Visit Provider Family Medicine
DX: E11.9 Type 2 diabetes mellitus without complications (principal); I10 Essential (primary) hypertension; K21.9 Gastro-esophageal reflux disease without esophagitis
CPT/HCPCS: 36415; 80053; 80061; 82043; 82570; 82607; 83036

== ENCOUNTER → 2025-11-10 09:45 | Outpatient (BNVA) | payer MEDICARE, MEDICAID, SELFPAY | PROVIDERS: PCP Family Medicine; Referring Provider Family Medicine; Visit Provider Podiatrist | DX: M76.61 Achilles tendinitis, right leg (principal); M92.61 Juvenile osteochondrosis of tarsus, right ankle; L84 Corns and callosities | CPT/HCPCS: 99213 ==

== ENCOUNTER → 2025-11-21 00:12 | Outpatient (CLI) | payer MEDICARE, MEDICAID, SELFPAY ==
--- NOTE | 2025-11-21 09:40 | DI.MAMMO_ITS ---
Exam(s) MAMMO SCREENING EXAM: MAMMO SCREENING CLINICAL HISTORY: screening,z12.39. TECHNIQUE: Bilateral full field digital CC and MLO mammographic images were obtained with 3D tomosynthesis and utilizing computer aided detection (CAD). COMPARISON: Prior mammograms were reviewed. FINDINGS: There has been no significant change in the appearance and distribution of the fibroglandular tissue. Benign calcifications the medial aspect of the left breast are again noted which are most probably related to fat necrosis in this patient has had prior bilateral reduction surgery. There are no new spiculated masses nor new malignant appearing microcalcification groups. There is no significant architectural distortion nor skin thickening-retraction. IMPRESSION: No radiographic evidence of malignancy. BI-RADS Category 1 - Negative Breast Density - Category A - The breast are almost entirely fatty. Breast density Category C or D implies that the patient has dense breast tissue. Dense breast tissue can make it harder to find cancer on a mammogram. Dense breast tissue is also associated with an increased risk of breast cancer. This information about the result of the mammogram report was provided to the patient to raise their awareness. Use this report when you speak with the patient about their risks for breast cancer, which includes their family history. At that time, you may recommend additional screening tests (Ultrasound or MRI) as these tests may add significant information. A negative radiographic report should not delay biopsy if a dominant or clinically suspicious mass is present. Up to ten percent of cancers are not identified on mammography. A negative report may reinforce clinical impression. Adenosis and dense breasts may obscure an underlying neoplasm. False positive reports average 6 to 10%. Patient will receive a letter notifying them of these results.
== END ==
LOC: DI 00:12
PROVIDERS: PCP Family Medicine; Visit Provider Family Medicine
DX: Z12.31 Encounter for screening mammogram for malignant neoplasm of breast (principal)
CPT/HCPCS: 77063; 77067